=== PATIENT | female | born 1935 | race Caucasian/White ===

== ENCOUNTER 2019-06-20 09:56 | Outpatient (CLI) | payer OTHER, SELFPAY ==
--- NOTE | 2019-06-27 16:06 | WPDHOLTEREM ---
Holter/Event Monitor Holter/Event Monitor Date of procedure: 06/20/19 Procedure Type: 48 hour holter monitor Indications: Syncope Conclusion: 1. 48 hour holter monitor on 06/20/19. 2. Underlying rhythm is sinus rhythm. HR range 54-129 bpm; average HR 73 bpm. 3. No premature supraventricular complexes. No supraventricular tachycardia. 4. There are 9 premature ventricular complexes. No ventricular tachycardia. 5. No sinoatrial or atrioventricular blocks. No significant pauses greater than 2 seconds. 6. Patient reports symptoms of dizziness and eye pain which demonstrate sinus rhythm, HR range 64-90 bpm.
== END 2019-06-20 09:57 | disposition home or self-care (01) ==
LOC: ANHCARD 09:58
PROVIDERS: PCP Internal Medicine; Visit Provider Nurse Practitioner
DX: R55 Syncope and collapse (principal)
CPT/HCPCS: 93225; 93226

== ENCOUNTER 2019-07-04 08:44 | Outpatient (CLI) | payer OTHER, SELFPAY ==
--- NOTE | ~2019-07-04 | MM_ITS ---
EXAMINATION: MM screening chanda BI w paulino HISTORY: Screening mammogram TECHNIQUE: Craniocaudal and mediolateral oblique 3-D tomosynthesis images were obtained and synthetic 2-D images were generated. CAD analysis was submitted and interpreted. COMPARISON: 05/26/2018, 05/21/2017, 05/16/2016 bilateral digital screening mammogram examinations BREAST PARENCHYMAL COMPOSITION: There are scattered areas of fibroglandular density. FINDINGS: Scattered bilateral benign calcifications.. There is a biopsy marker on the left; history o f prior benign left breast biopsy. There is no evidence of suspicious mass, calcification, or archite ctural distortion to suggest malignancy in either breast. There has been no suspicious interval olsen e. IMPRESSION: 1. No mammographic evidence of malignancy. 2. Recommend routine screening mammography in one year. BI-RADS Category 2: Benign finding(s). Reviewed, dictated and finalized at location A. [employer]
== END 2019-07-04 08:45 | disposition home or self-care (01) ==
PROVIDERS: PCP Internal Medicine; Visit Provider Internal Medicine
DX: Z12.31 Encounter for screening mammogram for malignant neoplasm of breast (principal)
CPT/HCPCS: 77063; 77067

== ENCOUNTER 2020-09-18 09:35 | Outpatient (CLI) | payer OTHER, SELFPAY ==
--- NOTE | ~2020-09-18 | MM_ITS ---
EXAMINATION: MM screening chanda BI w paulino HISTORY: Screening mammogram TECHNIQUE: Craniocaudal and mediolateral oblique 3-D tomosynthesis images were obtained and synthetic 2-D images were generated. CAD analysis was submitted and interpreted. COMPARISON: 07/04/2019, 05/26/2018, 05/13/2017 bilateral digital screening mammogram examinations BREAST PARENCHYMAL COMPOSITION: There are scattered areas of fibroglandular density. FINDINGS: Biopsy marker on the left; history of prior benign left breast biopsy. Scattered bilateral benign calcifications. Stable circumscribed low-density approximately 2.8 x 6.8 mm opacity in the mid to lower outer left br east on MLO view (MLO Tomosynthesis image 21/71), not significantly changed since 05/26/2018. The mammo graphic features and the stability are consistent with benign process. There is no evidence of suspicious mass, calcification, or architectural distortion to suggest malign charlie in either breast. There has been no suspicious interval change. IMPRESSION: 1. No mammographic evidence of malignancy. 2. Recommend routine screening mammography in one year. BI-RADS Category 2: Benign finding(s). Reviewed, dictated and finalized at location A.
== END 2020-09-18 09:36 | disposition home or self-care (01) ==
LOC: ANHIMG 09:41
PROVIDERS: PCP Internal Medicine; Visit Provider Internal Medicine
DX: Z12.31 Encounter for screening mammogram for malignant neoplasm of breast (principal)
CPT/HCPCS: 77063; 77067

== ENCOUNTER → 2021-12-11 08:24 | Outpatient (CLI) | payer OTHER, SELFPAY ==
--- NOTE | ~2021-12-11 | US_ITS ---
EXAMINATION: US abdomen complete DATE: 12/11/2021 08:55 INDICATION: Abdominal pain and constipation. TECHNIQUE: Multiple grayscale and Doppler ultrasound images of the abdomen were obtained. COMPARISON: Abdomen 11/28/2005 FINDINGS: Visualized portions are normal. The liver is normal with normal echogenicity and echotextur e. No surface nodularity. Normal hepatopetal flow in the main portal vein. Multiple shadowing echogen ic foci obscured with the majority of the gallbladder lumen. The mildly dilated common bile duct prabha ures 10 mm. There was no sonographic Yap sign. The visualized portions of the aorta and inferior v aileen cava are normal. The right kidney measures 9.1 cm. The left kidney measures 8.9 cm. The kidneys demonstrate normal par enchymal echogenicity with mild cortical thinning. Echogenic right midpole pole focus. There is no hy dronephrosis. The spleen is normal in appearance and measures 7.9 cm. IMPRESSION: 1. Cholelithiasis. 2. Mild common bile duct dilation. 3. Nonobstructing right midpole echogenicity, likely calculus. Reviewed, dictated and finalized at location K.
== END ==
PROVIDERS: PCP Internal Medicine; Visit Provider Nurse Practitioner
DX: R19.5 Other fecal abnormalities (principal); K80.20 Calculus of gallbladder without cholecystitis without obstruction
CPT/HCPCS: 76700

== ENCOUNTER 2021-12-19 08:41 | Outpatient (CLI) | payer OTHER, SELFPAY ==
--- NOTE | ~2021-12-19 | DEXA_ITS ---
Bone Density Report Name: NEWTON ESTEVEZ Age: 86 Sex: Female Ethnicity: White Date of : 1935 Indication: osteopenia; hysterectomy; Referring Provider: LUCINDA MEADE Study: Bone densitometry was performed. Exam Date: December 19, 2021 Accession number: [id number] Bone Density: Region BMD T-score Z-score Classification AP Spine(L1-L4) 0.856 -1.7 1.1 Osteopenia Femoral Neck (Left) 0.549 -2.7 -0.2 Osteoporosis Total Hip (Left) 0.722 -1.8 0.5 Osteopenia Femoral Neck (Right) 0.547 -2.7 -0.2 Osteoporosis Total Hip (Right) 0.649 -2.4 -0.1 Osteopenia Total Hip Mean 0.686 -2.1 0.2 Osteopenia World Health Organization criteria for BMD impression classify patients as: Normal (T-score at or above -1.0), Osteopenia (T-score between -1.0 and -2.5), or Osteoporosis (T-score at or below -2.5). 10-year Fracture Risk: FRAX not reported because: Some T-score for Spine Total or Hip Total or Femoral Neck at or below -2.5 Previous Exams: Region Exam Age BMD T-score BMD Change BMD Change Date g/cm2 vs Baseline vs Previous AP Spine (L1-L4) 12/19/2021 86 0.856 -1.7 0.033 (4.0%)# -0.053 (-5.9%) 04/24/2015 79 0.910 -1.2 0.086 (10.5%)# 0.086 (10.5%)# 03/30/2012 76 0.824 -2.0 Total Hip(Left) 12/19/2021 86 0.722 -1.8 -0.050 (-6.5%) -0.074 (-9.3%) 04/24/2015 79 0.796 -1.2 0.024 (3.1%)# 0.024 (3.1%)# 03/30/2012 76 0.772 -1.4 Total Hip(Right) 12/19/2021 86 0.649 -2.4 -0.063 (-8.8%) -0.088 (-12.0% 04/24/2015 79 0.738 -1.7 0.026 (3.6%)# 0.026 (3.6%)# 03/30/2012 76 0.712 -1.9 *Denotes significance at 95% confidence level, LSC for AP Spine = 0.022 g/cm2, LSC for Total Hip = 0.027 g/cm2 # Denotes dissimilar scan types or analysis methods Clinical Information Provided by Patient: Has used the following medications: Vitamin D, Calcium Has the following medical conditions: Hysterectomy Patient maximum height was 62.5 Menopause Age: 49 No regular weight bearing exercise Onset of menses at age 13 Number of children 3 Impression: The patient has osteoporosis, based on the Left Femoral Neck T-score. The BMD for the AP Spine (L1-L4) decreased, changing by -5.9% since the last DXA exam. The BMD for the Total Hip(Left) decreased, changing by -9.3% since the last DXA exam. The BMD for the Total Hip(Right) decreased, changing by -12.0% since the last DXA exam. Discussion: INCREASED RISK OF FRACTURE. BONE DENSITY IS UNDESIRA
--- NOTE | ~2021-12-19 | MM_ITS ---
EXAMINATION: MM screening chanda BI w paulino HISTORY: Screening mammogram TECHNIQUE: Craniocaudal and mediolateral oblique 3-D tomosynthesis images were obtained and synthetic 2-D images were generated. CAD analysis was submitted and interpreted. COMPARISON: 09/18/2020, 07/04/2019, 05/26/2018 bilateral screening mammogram examinations BREAST PARENCHYMAL COMPOSITION: There are scattered areas of fibroglandular density. FINDINGS: Scattered bilateral benign calcifications There is no evidence of suspicious mass, calcific ation, or architectural distortion to suggest malignancy in either breast. There has been no suspicio us interval change. IMPRESSION: 1. No mammographic evidence of malignancy. 2. Recommend routine screening mammography in one year. BI-RADS Category 2: Benign finding(s). Reviewed, dictated and finalized at location A.
== END 2021-12-19 08:42 | disposition home or self-care (01) ==
LOC: ANHIMG 08:45
PROVIDERS: PCP Internal Medicine; Visit Provider Internal Medicine
DX: Z12.31 Encounter for screening mammogram for malignant neoplasm of breast (principal); Z78.0 Asymptomatic menopausal state; M85.88 Other specified disorders of bone density and structure, other site; M81.0 Age-related osteoporosis without current pathological fracture; M85.852 Other specified disorders of bone density and structure, left thigh; M85.851 Other specified disorders of bone density and structure, right thigh
CPT/HCPCS: 77063; 77067; 77080

== ENCOUNTER 2023-01-21 14:23 | Emergency (ER) | payer OTHER, SELFPAY ==
--- NOTE | 2023-01-21 14:35 | ED.FEMALEGU ---
HPI - Female Genitourinary General Chief complaint: Urogenital-Female Stated complaint: WEAKNESS/SHAKY/BURNING URINATION/LIGHT HEADED Time Seen by Provider: 01/21/23 14:35 Source: patient, family and RN notes reviewed History of Present Illness HPI Narrative: Patient is an 87-year-old female presents to urgent care with her 2 daughters with complaints of burning with urination, weakness, fatigue and hot flashes. Patient states it started last night after having a full day of yd work and housework. Patient does live alone and does not use any assistive devices. Patient denies any recent fever, nausea, vomiting. States that she does have some abdominal pressure. Patient did have COVID on January 08 and did well during that week of symptoms. Patient has not taken anything [id number]. States that when she stands up she feels very weak like she is ?going to pass out?. Patient did have a UTI approximately 2 months ago and was treated outpatient at another urgent care. Patient does take metformin and her blood sugar this morning at home was 126 however she has not eaten. No other acute complaints. No acute distress noted. Patient and family aware of the plan of care. Some parts of this dictation were generated by voice recognition software and may contain typographical and/or grammatical inaccuracies. Related Data Home Medications Medication Instructions Recorded Confirmed omega-3 fatty acids 1,000 mg 1,000 mg PO DAILY 06/24/19 01/21/23 capsule (Fish Oil Concentrate) cholecalciferol (vitamin D3) 50 50 mcg PO DAILY 12/06/20 01/21/23 mcg (2,000 unit) capsule melatonin 10 mg capsule 10 mg PO QHS 03/12/21 01/21/23 Allergies Allergy/AdvReac Type Severity Reaction Status Date / Time codeine Allergy Unknown Nausea and Verified 01/21/23 14:29 Vomiting Review of Systems Review of Systems: CONSTITUTIONAL: Reports of fatigue and sweats EYES: Denies visual changes, redness, or discharge. ENT: Denies rhinorrhea, congestion, sore throat, or otalgia. CARDIOVASCULAR: Denies chest pain, palpitations, or edema. RESPIRATORY: Denies cough or dyspnea. GASTROINTESTINAL: Reports abdominal pressure GENITOURINARY: Reports dysuria SKIN: Denies rash or itching. MUSCULOSKELETAL: Denies back pain, joint pain, or myalgia. NEUROLOGIC: reports of weakness All other systems reviewed are negative, except as documented in HPI. [facility] Past Medical History Medical History (Updated 01/21/23 @ 14:59 by JHONY Sanz) DDD (degenerative disc disease) Diabetes mellitus Diverticulosis Fibroids GERD (gastroesophageal reflux disease) Hemorrhoids Hiatal hernia HLD (hyperlipidemia) HTN (hypertension) Osteoporosis Peripheral neuropathy Rectal polyp Surgical History Surgical History H/O dilation and curettage H/O: hysterectomy Hx of tonsillectomy Status post eye surgery Family History Family History Mother Carcinoma of colon Family history of malignant neoplasm Patient's mother is Sibling Family history of Alzheimer's disease Family history of diabetes mellitus in first degree relative Patient's sister is Father Patient's father is Other Diabetes mellitus Social History Social History (Reviewed 09/11/22 @ 07:21 by Christine Heard [facility]) Smoking status: Never smoker Second hand tobacco smoke exposure: Yes Alcohol intake: never Substance use: never Substance use type: does not use Lack of Transportation: No Lack of Food: Never True Current Housing: I Have Housing Concerned About Future Housing: No Difficulty Paying Gas/Electric Bills: No Difficulty Paying for Meds: No Currently Unemployed: No Education: High School Diploma/GED Difficulty w/ Childcare or Family Care: No Comments At the time of my sig
[2023-01-21 14:36] VITALS: BP 138/81; PULSE 69; RESP 16; TEMP 36.6; O2SAT 100
[2023-01-21 14:48] LABS: Glucose Point of Care 136 mg/dl (65-105)
== END 2023-01-21 14:53 | disposition short-term general hospital (02) ==
PROVIDERS: Emergency Provider Nurse Practitioner Family; PCP Nurse Practitioner Family
DX: R41.0 Disorientation, unspecified (principal); R53.1 Weakness; R10.30 Lower abdominal pain, unspecified; Z86.16 Personal history of COVID-19; E11.42 Type 2 diabetes mellitus with diabetic polyneuropathy; K21.9 Gastro-esophageal reflux disease without esophagitis; E78.5 Hyperlipidemia, unspecified; I10 Essential (primary) hypertension; M81.0 Age-related osteoporosis without current pathological fracture; Z79.84 Long term (current) use of oral hypoglycemic drugs
CPT/HCPCS: 81003; 82948; 99212; 99213; G0463

== ENCOUNTER 2023-01-21 15:12 | Observation (INO) | payer OTHER, SELFPAY ==
--- NOTE | ~2023-01-21 | US_ITS ---
EXAMINATION: US carotid duplex BI DATE: 01/22/2023 19:06 INDICATION: Transient ischemic attack. Ataxia. TECHNIQUE: Grayscale, color Doppler, and pulsed Doppler images of the cervical carotid arteries were obtained. The degree of vessel stenosis is placed in one of the following categories: normal, <50%, 5 0-69%, >=70% but less than near-occlusion, near-occlusion, or total occlusion. Note that percent sten osis relative to normal distal artery lumen diameter is indirectly measured from velocity measurement s as described by Ez, et al. Radiology 2003; 229:340-346. COMPARISON: None. FINDINGS: RIGHT: The right common carotid artery (CCA) peak systolic velocity (PSV) is 98 cm/s. The right internal car otid artery (ICA) PSV is 85 cm/s. The right ICA end-diastolic velocity (EDV) is 25 cm/s. The right IC A/CCA PSV ratio is 0.9. Grayscale and color Doppler images yield an estimate of <50% diameter reducti on from plaque in the ICA. There is antegrade flow in the right vertebral artery. LEFT: The left CCA PSV is 112 cm/s. The left ICA PSV is 96 cm/s. The left ICA EDV is 31 cm/s. The left ICA/ CCA PSV ratio is 0.9. Grayscale and color Doppler images yield an estimate of <50% diameter reduction from plaque in the ICA. There is antegrade flow in the left vertebral artery. IMPRESSION: 1. <50% stenosis in the right internal carotid artery. 2. <50% stenosis in the left internal carotid artery. Reviewed, dictated and finalized at location E.
--- NOTE | ~2023-01-21 | MR_ITS ---
MRI of the brain Clinical History: Ataxia Technique: Axial and sagittal T1-weighted images were acquired. These were followed by axial T2-weigh jimmie, diffusion weighted, gradient, and FLAIR images. Following intravenous administration of 12 cc Mu ltiHance gadolinium, T1-weighted fat-sat imaging was performed in the axial and coronal planes. Findings: There is no acute infarct, intracranial hemorrhage, or mass lesion. There are extensive chr onic white matter changes throughout the periventricular white matter bilaterally. Ventricles and some arachnoid spaces are mildly dilated. Orbits are unremarkable. Paranasal sinuses a nd mastoid air cells are clear. Major intracranial flow voids are intact. Sagittal midline structures are intact. No abnormal postcontrast enhancement identified. IMPRESSION: Severe chronic microvascular ischemic changes and mild to moderate generalized atrophy. No acute infarct, intracranial hemorrhage, or mass lesion. Reviewed, dictated and finalized at [facility].
--- NOTE | ~2023-01-21 | XR_ITS ---
EXAMINATION: XR chest 2V Exam Date/Time: 01/21/2023 18:20 CDT HISTORY: dizziness, short of breath Comparison: 12/09/2005. RESULT: Lines, tubes, and devices: None. Lungs and pleura: Senescent change. Otherwise clear.. Cardiomediastinal silhouette: Stable. Other: No acute osseous or upper abdominal finding. IMPRESSION: No acute cardiopulmonary process. Reviewed, dictated and finalized at location K.
--- NOTE | ~2023-01-21 | CT_ITS ---
EXAMINATION: CT brain wo con DATE: 01/21/2023 18:20 INDICATION: dizziness, ataxia . TECHNIQUE: Computed tomography (CT) of the head was performed without intravenous contrast. The mA wa s adjusted according to patient size. Iterative reconstruction technique was employed. The dose-lengt h product was 605.33 mGy-cm. COMPARISON: 05/03/2019. FINDINGS: No acute intracranial hemorrhage or extra-axial fluid collection. No hydrocephalus, mass, or herniation. No acute ischemic infarct. Unremarkable dural venous sinus attenuation. No acute osseous abnormality. The aerated spaces are clear. Moderate atrophy and chronic white matter change. Atherosclerotic intracranial calcification. Surgica l fixation of the left orbital floor. IMPRESSION: No acute intracranial process. Reviewed, dictated and finalized at location K.
[2023-01-21 15:16] VITALS: BP 118/61; PULSE 69; RESP 16; TEMP 36.2; O2SAT 97
--- NOTE | 2023-01-21 16:04 | ECG_ITS ---
Measurements Intervals [place] Rate: 58 P: 64 VT: 216 QRS: 2 QRSD: 75 T: 92 QT: 379 QTc: 373 Interpretive Statements SINUS BRADYCARDIA WITH FIRST DEGREE AV BLOCK NONSPECIFIC ST & T-WAVE ABNORMALITY ABNORMAL ECG COMPARED TO ECG 05/03/2019 15:18:17 SINUS BRADYCARDIA NOW PRESENT FIRST DEGREE AV BLOCK NOW PRESENT T-WAVE ABNORMALITY NOW PRESENT Electronically Signed On 01-22-2023 9:43:34 CDT by Cody Hernandez M.D.
[2023-01-21 16:26] LABS: Basophils Absolute Auto 0.1 K/mm3 (0.0-0.1); Basophils Percent Auto 0.7 % (0.2-1.2); Eosinophils Absolute Auto 0.2 K/mm3 (0-0.3); Eosinophils Percent Auto 1.6 % (0-4.4); Hematocrit 44.8 % (37.0-47.0); Hemoglobin 14.9 g/dL (12.0-15.0); Immature Granulocyte Absolute 0.02 K/mm3 (0.00-0.031); Immature Granulocyte Percent A 0.2 % (0-0.5); Lymphocytes Absolute Auto 3.97 K/mm3 (0.9-3.2); Lymphocytes Percent Auto 40.3 % (18.3-44.2); Mean Corpuscular HGB Conc 33.3 g/dl (32-36); Mean Corpuscular Hemoglobin 28.5 pg (26-34); Mean Corpuscular Volume 85.8 fl (80-100); Mean Platelet Volume 10.7 fl (7.4-10.4); Monocytes Absolute Auto 0.7 K/mm3 (0.1-0.6); Monocytes Percent Auto 6.7 % (2.6-8.5); Neutrophils Percent Auto 50.5 % (45.5-73.1); Platelet Count Result 339 k/mm3 (150-375); Red Blood Count 5.22 M/mm3 (4.2-5.4); Red Cell Distribution Width 12.9 % (11.5-14.5); White Blood Count 9.9 K/mm3 (4.5-10.0)
[2023-01-21 16:30] VITALS: BP 176/78; PULSE 57; RESP 18; O2SAT 94
[2023-01-21 16:37] LABS: Alanine Aminotransferase 29 U/L (6-35); Albumin Level 4.2 g/dL (3.5-5.1); Alkaline Phosphatase 71 U/L (38-126); Anion Gap 16 mmol/L (8-16); Aspartate Amino Transferase 38 U/L (14-36); Bilirubin,Total 0.8 mg/dL (0.2-1.3); Blood Urea Nitrogen 14 mg/dL (7-17); Calcium 9.8 mg/dL (8.4-10.2); Carbon Dioxide 19 mmol/L (22-30); Chloride 105 mmol/L (98-107); Estimated CRCL calculation 34 ml/min; Estimated Glomerular Filt Rate > 60; Glucose 131 mg/dL (65-110); Potassium 3.6 mmol/L (3.4-5.0); Sodium 140 mmol/L (137-145)
[2023-01-21] MEDS: SODIUM CHLORIDE 0.9% IV 1,000 ML 999 ML IV CONT (16:43)
[2023-01-21 17:30] VITALS: BP 149/72; PULSE 63; RESP 16; O2SAT 98
--- NOTE | 2023-01-21 17:57 | ED.WEAKNESS ---
HPI - Weakness General Chief complaint: Weakness Stated complaint: dizzy, tremors, fatigue Time Seen by Provider: 01/21/23 15:44 History of Present Illness HPI Narrative: Patient is an 87-year-old female who presents ER with weakness/dizziness. Ongoing since being diagnosed with COVID-19 on 01/08/2023. She is not currently having any fevers or chills or sweats. Has had poor appetite. Over the last couple of days she has become so weak and fatigued that she is unable to ambulate independently and she has been using a wheelchair at home. No falls or injury. She had mild headache yesterday but no headache today. No focal lateralizing weakness or numbness. No slurred speech. Patient reports with any sort of standing or sitting up she becomes incredibly dizzy/weak and feels as if she will fall. Is not improved until she lays down flat. No sinus congestion or sore throat or productive cough. No ear pressure or tinnitus. Related Data Home Medications Medication Instructions Recorded Confirmed omega-3 fatty acids 1,000 mg 1,000 mg PO DAILY 06/24/19 01/21/23 capsule (Fish Oil Concentrate) cholecalciferol (vitamin D3) 50 50 mcg PO DAILY 12/06/20 01/21/23 mcg (2,000 unit) capsule melatonin 10 mg capsule 10 mg PO QHS 03/12/21 01/21/23 Allergies Allergy/AdvReac Type Severity Reaction Status Date / Time codeine Allergy Unknown Nausea and Verified 01/21/23 14:29 Vomiting Review of Systems Review of Systems: All systems reviewed & are unremarkable except as noted in HPI and below Constitutional: Constitutional: Denies chills, Reports fatigue, Denies fever(s) and Reports weakness ENT: Denies nasal congestion and Denies sore throat Cardiovascular: Cardiovascular: Denies chest pain and Denies rapid heart rate Respiratory: Respiratory: Denies cough, Denies dyspnea and Denies wheezing Gastrointestinal: Gastrointestinal: Denies abdominal pain, Denies nausea and Denies vomiting Genitourinary: Genitourinary: Denies nocturia, Denies dysuria and Denies flank pain Neurologic: Reports dizziness, Denies syncope, Denies headache(s), Denies focal weakness, Denies numbness and Reports weakness Psychiatric: Psychiatric: Reports anxiety [facility] Past Medical History Medical History (Updated 01/21/23 @ 19:14 by Deniz Merida MD) DDD (degenerative disc disease) Diabetes mellitus Diverticulosis Fibroids GERD (gastroesophageal reflux disease) Hemorrhoids Hiatal hernia HLD (hyperlipidemia) HTN (hypertension) Osteoporosis Peripheral neuropathy Rectal polyp Surgical History Surgical History H/O dilation and curettage H/O: hysterectomy Hx of tonsillectomy Status post eye surgery Family History Family History Mother Carcinoma of colon Family history of malignant neoplasm Patient's mother is Sibling Family history of Alzheimer's disease Family history of diabetes mellitus in first degree relative Patient's sister is Father Patient's father is Other Diabetes mellitus Social History Social History Smoking status: Never smoker Second hand tobacco smoke exposure: Yes Alcohol intake: never Substance use: never Substance use type: does not use Lack of Transportation: No Lack of Food: Never True Current Housing: I Have Housing Concerned About Future Housing: No Difficulty Paying Gas/Electric Bills: No Difficulty Paying for Meds: No Currently Unemployed: No Education: High School Diploma/GED Difficulty w/ Childcare or Family Care: No Exam Narrative: GENERAL: Fatigued-appearing, well-nourished, and in no acute distress. HEAD: Normocephalic, atraumatic. EYES: PERRLA and EOMI. ENT: Mucous membranes moist. NECK: Supple. CHEST: Clear to auscultation.
[2023-01-21 18:00] VITALS: BP 159/89; PULSE 60; RESP 18; O2SAT 100
[2023-01-21 18:53] LABS: Appearance Urine Clear (Clear); Bilirubin Urine Negative (Negative); Blood Urine Negative (Negative); Color Urine Yellow (Yellow); Glucose Urine UA Negative (Negative); Ketones Urine Negative (Negative); Leukocyte Esterase Ur Negative LEU/UL (Negative); Nitrate Urine Negative (Negative); Protein Urine Negative (Negative); Specific Grav Ur 1.007 (1.001-1.035); Urobilinogen Urine 0.2 mg/dL (<2.0); pH Urine 8.5 (5.0-9.0)
[2023-01-21 18:55] LABS: Add Urine Microscopic? NO
--- NOTE | 2023-01-21 19:16 | PC.NURSE ---
Patient's family came out of room and states that patient began acting confused . This RN went to assess patient and she was unable to answer basic orientation questions. Provider made aware to assess patient. Order placed for ativan
[2023-01-21 19:29] LABS: Carboxyhemoglobin 0.3 % THb (0-2.0); Fractional Inspired Oxygen 21 %; HCO3 ABG 17.7 mEq/l (22.0-26.0); Methemoglobin ABG 0.2 %THb (0-1.5); Oxygen Content ABG 20.2 %vol (16.0-22.0); Oxygen Saturation ABG 98.8 % (95.0-100.0); Oxyhemoglobin 97.5 % THb (90.0-100.0); PO2 ABG 98.7 mmHg (80.0-100.0); Total Hemoglobin 14.7 g/dL (12.0-18.0)
[2023-01-21 19:32] LABS: PCO2 ABG 13.4 mmHg (35.0-45.0); pH ABG 7.738 (7.350-7.450)
[2023-01-21 19:33] LABS: Device ROOM AIR; Modified Allen's Test Pass; Site Drawn RIGHT RADIAL
--- NOTE | 2023-01-21 19:53 | PC.NURSE ---
Hospitalist called about patient's confusion. Dr Hinds at bedside.
[2023-01-21] MEDS: LORazepam INJ (*CRX) 2 MG/ML VIAL 0.5 MG IV PUSH (20:05)
[2023-01-21 20:07] VITALS: BP 140/82; PULSE 61; RESP 23; O2SAT 100
--- NOTE | 2023-01-21 21:56 | ADMGEN ---
This patient, Noemi Peter, was admitted to 3 Med Surg Room 321-02 at 2150. Patient/family oriented to hospital policies and general routines including ID bracelet, bed and alarms, visiting hours, pain management, procedures, bathroom and other care routines, personal items, smoking policy, room service/diet, and visiting hours. Information on how to activate the Rapid Response Team has been discussed. Patient/Family are encouraged to report perceived risks to care and to ask questions if they do not understand what they are told or what they should do.
[2023-01-21 22:00] VITALS: BP 157/64; PULSE 63; RESP 14; TEMP 35.8; O2SAT 98
--- NOTE | 2023-01-21 22:17 | PM.IMHP ---
H&P: HPI History of Present Illness Date/Time: 01/21/23 22:17 Chief Complaint: Weakness Narrative: Patient is a 87-year-old female with past medical history GERD, type 2 diabetes with peripheral neuropathy, hyperlipidemia who presents with weakness. Patient has completed by 2 daughters. Power dental equipment installer and servicer is patient's son. Patient lives alone and has close family. She was diagnosed with COVID-19 on 01/08/2023. Disease was pretty mild and of note she has been vaccinated x5. She has not had any issues and yesterday even went to a [employer] function. Going home she felt some weakness and tremors was able to get home. This morning patient had worsening weakness that family was concerned that she was unable to ambulate to the bathroom alone. At baseline patient is very functional even drives and takes care of herself. Patient is full code. In the ED: Workup in the ED was negative with negative head CT, labs within normal limits. While in the ED she has increased confusion and some word salad issues. Her confusion appeared to be intermittent at times speaking coherently. 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 Will see in the a.m. about MRI. With patient's acute encephalopathy and weakness we will admit for observation. Review of Systems Review of Systems: Constitutional: No Fever, No Chills, No Night Sweats, endorses fatigue and weakness ENT/Mouth: No Hearing Changes, No Ear Pain, No Nasal Congestion, No Sinus Pain, No Hoarseness, No sore throat, No Rhinorrhea, No Swallowing Difficulty Eyes: No Eye Pain, No Redness, No Vision Changes Cardiovascular: No Chest Pain, No Palpitations, No Dyspnea on Exertion, No Orthopnea, No Claudication, No Edema Respiratory: No Cough, No Sputum, No Wheezing, No Shortness of Breath Gastrointestinal: No Nausea, No Vomiting, No Diarrhea, No Constipation, No Abdominal Pain, No Heartburn, No Hematochezia, No Melena Genitourinary: No Dysuria, No Urinary Frequency, No Hematuria, No Urinary Incontinence, No Urgency Musculoskeletal: No Arthralgias, No Myalgias, No Joint Swelling, No Joint Stiffness, No Back Pain Skin: No Skin Lesions, No Pruritis, No Hair Changes Neuro: No Weakness, No Numbness, No Paresthesias, No Loss of Consciousness, No Syncope, No Dizziness, No Headache. Endorses new tremors Psych: No Anxiety/Panic, No Depression, No Insomnia Heme: No Bruising, No Bleeding Lymph: No Adenopathy Endocrine: No Polyuria, No Polydipsia, No Temperature Intolerance PMF Past Medical History Medical History DDD (degenerative disc disease) Diabetes mellitus Diverticulosis Fibroids GERD (gastroesophageal reflux disease) Hemorrhoids Hiatal hernia HLD (hyperlipidemia) HTN (hypertension) Osteoporosis Peripheral neuropathy Rectal polyp Surgical History Surgical History H/O dilation and curettage H/O: hysterectomy Hx of tonsillectomy Status post eye surgery Family History Family History Mother Carcinoma of colon Family history of malignant neoplasm Patient's mother is Sibling Family history of Alzheimer's disease Family history of diabetes mellitus in first degree relative Patient's sister is Father Patient's father is Other Diabetes mellitus Social History Social History Smoking status: Never smoker Second hand tobacco smoke exposure: Yes Alcohol intake: never Substance use: never Substance use type: does not use Lack of Transportation: No Lack of Food: Never True Current Housing: I Have Housing Concerned About Future Housing: No Difficulty Paying Gas/Electric Bills: No Difficulty Paying for Meds: No Curre
--- NOTE | 2023-01-21 22:25 | PC.NURSE ---
med list in progress. patient able to state medications but not doses. will call daughter Pat to confirm doses
[2023-01-21 22:31] VITALS: BMI 25.2
[2023-01-21 22:33] LABS: Glucose Point of Care 110 mg/dl (65-105)
[2023-01-21 23:13] LABS: Base Excess ABG 0.4 mEq/l (+/-2.0); Fractional Inspired Oxygen 21 %; HCO3 ABG 20.7 mEq/l (22.0-26.0); Oxygen Content ABG 19.2 %vol (16.0-22.0); Oxygen Saturation ABG 97.2 % (95.0-100.0); Oxyhemoglobin 95.1 % THb (90.0-100.0); PO2 ABG 79.4 mmHg (80.0-100.0); PO2 FiO2 Ratio Arterial Blood 3.78 %; Total Hemoglobin 14.3 g/dL (12.0-18.0)
[2023-01-21 23:20] LABS: Modified Allen's Test Pass; PCO2 ABG 23.7 mmHg (35.0-45.0); Site Drawn RIGHT BRACHIAL
[2023-01-21 23:21] LABS: Device ROOM AIR
--- NOTE | 2023-01-21 23:56 | PC.NURSE ---
med list completed after speaking to patient, daughter, and pharmacy. Medication list scanned and placed in chart. Patient states she had a blood pressure issue and passed out while taking Atorvastatin so she no longer is taking it
[2023-01-22] VITALS (9 sets, daily range): BP systolic 96–118; BP diastolic 53–63; PULSE 66–78; RESP 12–18; TEMP 36.3–36.9; O2SAT 94–95
[2023-01-22 03:36] LABS: Glucose Point of Care 125 mg/dl (65-105)
[2023-01-22 06:41] LABS: Basophils Absolute Auto 0.1 K/mm3 (0.0-0.1); Basophils Percent Auto 0.6 % (0.2-1.2); Eosinophils Absolute Auto 0.1 K/mm3 (0-0.3); Eosinophils Percent Auto 1.2 % (0-4.4); Hematocrit 38.5 % (37.0-47.0); Hemoglobin 12.7 g/dL (12.0-15.0); Immature Granulocyte Absolute 0.03 K/mm3 (0.00-0.031); Immature Granulocyte Percent A 0.3 % (0-0.5); Lymphocytes Absolute Auto 3.69 K/mm3 (0.9-3.2); Mean Corpuscular Hemoglobin 28.8 pg (26-34); Mean Corpuscular Volume 87.3 fl (80-100); Mean Platelet Volume 10.4 fl (7.4-10.4); Monocytes Absolute Auto 0.8 K/mm3 (0.1-0.6); Monocytes Percent Auto 6.9 % (2.6-8.5); Neutrophils Absolute Auto 6.2 K/mm3 (1.3-6.7); Platelet Count Result 287 k/mm3 (150-375); Red Blood Count 4.41 M/mm3 (4.2-5.4); Red Cell Distribution Width 12.7 % (11.5-14.5); White Blood Count 10.9 K/mm3 (4.5-10.0)
[2023-01-22 06:50] LABS: Alanine Aminotransferase 24 U/L (6-35); Albumin Level 3.6 g/dL (3.5-5.1); Alkaline Phosphatase 61 U/L (38-126); Anion Gap 5 mmol/L (8-16); Aspartate Amino Transferase 31 U/L (14-36); Blood Urea Nitrogen 14 mg/dL (7-17); Calcium 8.6 mg/dL (8.4-10.2); Carbon Dioxide 26 mmol/L (22-30); Chloride 106 mmol/L (98-107); Cholesterol 115 mg/dL (0-200); Estimated CRCL calculation 31 ml/min; Estimated Glomerular Filt Rate 59; Glucose 106 mg/dL (65-110); HDL Direct 31 mg/dL; Magnesium 1.1 mg/dL (1.6-2.3); Potassium 3.6 mmol/L (3.4-5.0); Sodium 137 mmol/L (137-145); Triglycerides 148 mg/dL (<150)
[2023-01-22 07:13] LABS: LDL Cholesterol Direct 62 mg/dL
[2023-01-22 08:07] LABS: Glucose Point of Care 110 mg/dl (65-105)
[2023-01-22 08:17] LABS: Hemoglobin A1C 7.3 % (<5.7)
[2023-01-22 08:26] LABS: Salicylate < 1.0 mg/dL (2-20)
[2023-01-22] MEDS: metFORMIN HCL 500 MG TABLET 1000 MG PO ×2 (09:08→18:50)
[2023-01-22] MEDS: MAGNESIUM SULFATE 3GM/D5W100ML 3 GM/100 ML BAG IVPB (09:08)
[2023-01-22] MEDS: CHOLECALCIFEROL 1,000 UNITS TABLET 2000 UNITS PO (09:08)
[2023-01-22] MEDS: OMEGA 3 POLYUNSAT FATTY ACIDS 1 GM CAP PO (09:08)
[2023-01-22] MEDS: CITALOPRAM HYDROBROMIDE 20 MG TABLET PO (09:08)
[2023-01-22] MEDS: ENOXAPARIN 30 MG/0.3 ML SYRINGE SUB-Q (09:09)
--- NOTE | 2023-01-22 09:40 | PC.NURSE ---
faxed MRI screening form to radiology with details provided by pt's son for titanium plate and screws in cheek
--- NOTE | 2023-01-22 10:53 | PC.NURSE ---
pt to MRI via wheelchair
[2023-01-22 11:47] LABS: Glucose Point of Care 85 mg/dl (65-105)
--- NOTE | 2023-01-22 11:58 | WPDNEURCNPN ---
Assessment and Plan Assessment and plan (1) Aphasia: Code(s): R47.01 - Aphasia Status: Acute (2) Dizziness: Code(s): R42 - Dizziness and giddiness Status: Acute (3) Weakness: Code(s): R53.1 - Weakness Status: Inactive Plan Noemi Peter is a 87 year old female with a history of degenerative disc disease, diabetes mellitus, diabetic neuropathy, hyperlipidemia, hypertension presenting due to generalized weakness/dizziness and word finding difficulty. Unclear etiology of symptoms. MRI brain is negative for acute stroke. Could have been TIA. - Continue Aspirin - LDL is at goal - Surface echocardiogram with bubble study -- pending Consult date: 01/23/23 Reason for consult: Encephalopathy, aphasia HPI: Noemi Peter is a 87 year old female with a history of degenerative disc disease, diabetes mellitus, diabetic neuropathy, hyperlipidemia, hypertension presenting due to generalized weakness/dizziness and word finding difficulty. Patient was diagnosed with COVID infection on 01/08. Symptoms were mild at the time and she did not have any issues until the day of presentation when she started to have generalized weakness. She had gotten to the point that she couldn't walk to the bathroom alone. At baseline she is fully independent of all her ADLs. Patient also reported dizziness with standing and sitting upright. Due to her symptoms, she was taken to [facility] ED. In the ED her CT head was negative for acute process. Lab work was unrevealing for etiology of her symptoms. There was report that patient appeared to be confused and was having some word finding difficulty wile in the ER. Patient is now back to her baseline. MRI brain was negative for acute stroke. Carotid doppler study showed <50% stenosis bilaterally. LDL level is 63. Her A1c is 7.3. Surface echocardiogram has been done but report is pending. Review of Systems Constitutional: Constitutional: Denies chills, Denies fever(s) and Denies weight loss Eyes: Eyes: Denies diplopia and Denies loss of vision ENT: Denies dizziness, Denies hearing loss and Denies tinnitus Cardiovascular: Cardiovascular: Denies chest pain, Denies syncope and Denies dyspnea Respiratory: Respiratory: Denies cough, Denies dyspnea and Denies wheezing Gastrointestinal: Gastrointestinal: Denies abdominal pain, Denies change in bowel habits and Denies vomiting Genitourinary: Genitourinary: Denies urinary incontinence Musculoskeletal: Musculoskeletal: Reports arthralgias and Reports joint swelling Integumentary/Breasts: Skin/Breast: Denies new lesions and Denies rash Neurologic: Reports as per HPI, Denies dizziness, Denies syncope and Denies loss of vision Psychiatric: Psychiatric: Denies anxiety and Denies depression Endocrine: Endocrine: Denies cold intolerance and Denies heat intolerance Hematologic/Lymphatic: Hematologic/Lymphatic: Denies easy bleeding and Denies easy bruising Allergic/Immunologic: Allergic/Immunologic: Denies no additional allergic/immunologic complaints and Denies wheezing PMFSH Past Medical History Medical History DDD (degenerative disc disease) Diabetes mellitus Diverticulosis Fibroids GERD (gastroesophageal reflux disease) Hemorrhoids Hiatal hernia HLD (hyperlipidemia) HTN (hypertension) Osteoporosis Peripheral neuropathy Rectal polyp Surgical History Surgical History H/O dilation and curettage H/O: hysterectomy Hx of tonsillectomy Status post eye surgery Family History Family History Mother Carcinoma of colon Family history of malignant neoplasm Patient's mother is Sibling Family history of Alzheimer's disease Family history of diabetes mellitus in first degree relative Patient's sister is Father Patient's
--- NOTE | 2023-01-22 15:30 | PM.IMPN ---
Progress Note: A&P Assessment and Plan (1) Confusion: Code(s): R41.0 - Disorientation, unspecified Status: Inactive Assessment and Plan: Patient presents to the ED for weakness. While being evaluated, she developed confusion with word salad. CT brain showing no acute findings. CXR clear. UA negative. ABG showing 7.738/13/98 on room air. Labs normal except for serum bicarb 19 that is probably compensatory. [place] she may be hyperventilating and did receive Ativan x 1 in ED with improvement in her ABG. Able to get MRI brain showing severe chronic microvascular ischemic changes and mild-mod atrophy. No acute findings. Confusion resolved in ED. No recurrence. Salicylate level negative. Not hypoxic or tachycardic to suggest PE. Consider TIA or related to hyperventilation. Neuro consulted Check Carotid US. CrCl 31 so will hold off on CTA head/neck. Check Echo Add ASA. 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 CXR was clear. Concern for post-COVID condition. Follow (3) Anxiety: Code(s): F41.9 - Anxiety disorder, unspecified Status: Acute Assessment and Plan: Patient with known anxiety disorder. She is on citalopram and this has been resumed. Mood stable. Will follow (4) Hypomagnesemia: Code(s): E83.42 - Hypomagnesemia Status: Acute Assessment and Plan: Mag level low at 1.1 and this was replaced. Repeat labs in the morning. Replace as needed (5) Respiratory alkalosis: Code(s): E87.3 - Alkalosis Status: Acute Assessment and Plan: Patient with significant respiratory alkalosis. Salicylate level negative. Related to anxiety/panic attack? Brain MRI showing no acute findings. Symptoms improved with Ativan. Follow (6) Type 2 diabetes mellitus with diabetic polyneuropathy: Code(s): E11.42 - Type 2 diabetes mellitus with diabetic polyneuropathy Status: Acute Assessment and Plan: The patient's blood glucose was reviewed on 01/22 Glucose remains well controlled. Continue AccuCheks covering with sliding scale. Hypoglycemia protocol available as needed. Continue current medications. Plan Diet: Heart healthy DVT prophylaxis: Lovenox Code status: Full code (son is Phil) Disposition: PT/OT to eval/treat. Home if able; o/w SNF Subjective Date/time seen: 01/22/23 15:30 Interval history: 87yo female with DM, HLD and GERD here for weakness and developed confusion and word salad in the ED. Symptoms lasted about 1 hour per family. She feels better. Slept all night. She was having dizziness described as lightheadedness with standing and would skae 'on the inside and outside'. She lives alone. No CP, SOB or palpitations. No alcohol, drug use or prescription narcotic/benzo use. Had a syncopal event in 2019 with negative workup. Exam Narrative: AF 98.4 104/56 66 16 95% ra Gen - NARD lying semi-recumbent in bed asleep Chest - CTA bilaterally, nml RR CV - RRR S1/S2. Tele showing no significant dysrhythmias Abd - Soft, NT/ND, Positive BS Ext - No pedal edema Neuro - Alert and oriented x4. Nonfocal exam. Psych - Nml mood and affect Skin - Warm and dry Objective Data Vital Signs Vital Signs: Vital Signs - 24 hr 01/21/23 16:30 01/21/23 17:30 01/21/23 18:00 Temperature Pulse Rate 57 L 63 60 Respiratory Rate 18 16 18 Blood Pressure 176/78 H 149/72 H 159/89 H Pulse Oximetry 94 98 100 Oxygen Delivery 01/21/23 20:07 01/21/23 22:00 01/22/23 01:04 Temperature 96.5 F L Pulse Rate 61 63 69 Respiratory Rate 23 H 14 Blood Pressure 140/82 157/64 H Pulse Oximetry 100 98 Oxygen Delivery 01/21/23 22:00 01/22/23 06:00 01/22/23 04:00 Temperature 97.3 F L Pulse Rate 68 71 Respiratory Rate 12 Blood Pressure 96/53 L Pulse Oximetry 94
[2023-01-22 17:17] LABS: Glucose Point of Care 112 mg/dl (65-105)
[2023-01-22] MEDS: ASPIRIN 81 MG CHEWABLE TABLET PO (18:49)
[2023-01-22 21:09] LABS: Glucose Point of Care 99 mg/dl (65-105)
[2023-01-23] VITALS (7 sets, daily range): BP systolic 121–132; BP diastolic 60–66; PULSE 62–74; RESP 16; TEMP 35.8–36.7; O2SAT 94–96
--- NOTE | 2023-01-23 | ECHO_ITS ---
Patient Info Name: Noemi Peter Age: 87 years : 1935 Gender: Female Ht: 62 in Wt: 137 lbs BSA: 1.66 m2 HR: 70 bpm BP: 132 / 60 mmHg Heart Rhythm: Sinus Rhythm Technical Quality: Fair Exam Date: 01/23/2023 10:19 AM Exam Location: [facility] Pulmonary Exam Room: 321 Patient Status: Inpatient Admit Date: 01/21/2023 Staff Ordering Physician: Corwin Sibley MD Slicer Machine Operator: Laura Quarles RDCS Attending Provider: Lorene Hinds DO Exam Type: CA echo doppler color flow Study Info Indications - TIA Complete two-dimensional, color flow and Doppler transthoracic echocardiogram is performed. Summary 1. Complete two-dimensional, color flow and Doppler transthoracic echocardiogram is performed. 2. Left ventricular chamber dimension is normal. 3. Left ventricular systolic function is normal, estimated at 60-65%. 4. The left ventricular diastolic function is grade I diastolic dysfunction. 5. E/e' 12 is mildly elevated. 6. There is mild aortic valve sclerosis. 7. There is trace mitral valve regurgitation. 8. There is mild tricuspid valve regurgitation. 9. No pulmonary hypertension, estimated pulmonary arterial systolic pressure is 21 mmHg. 10. There is trace pulmonic regurgitation. Left Ventricle E/e' 12 is mildly elevated. Left ventricular chamber dimension is normal. Left ventricular systolic function is normal, estimated at 60-65%. The left ventricular diastolic function is grade I diastolic dysfunction. Right Ventricle Right ventricular chamber dimension is normal. Right ventricular systolic function is normal. Left Atria Left atrial chamber dimension is normal. Right Atria Right atrial chamber dimension is normal. Aortic Valve The aortic valve is trileaflet. There is mild aortic valve sclerosis. There is no aortic valve stenosis. There is no aortic valve regurgitation. Pulmonic Valve There is trace pulmonic regurgitation. Mitral Valve There is no mitral valve stenosis. There is trace mitral valve regurgitation. Tricuspid Valve There is mild tricuspid valve regurgitation. No pulmonary hypertension, estimated pulmonary arterial systolic pressure is 21 mmHg. Pericardium/Pleural There is no pericardial effusion. Inferior Vena Cava Normal inferior vena cava with >50% collapse upon inspiration consistent with normal right atrial pressure, 5 mmHg. Aorta The aortic root size at the sinus of Valsalva is normal. Left Ventricular Outflow Tract Name Value Normal LVOT 2D LVOT Diameter 2.0 cm LVOT Doppler LVOT Peak Gradient 4 mmHg LVOT Mean Gradient 3 mmHg LVOT VTI 22 cm LVOT VTI/AV VTI Ratio 0.9 LVOT Stroke Volume 68 ml LVOT CO 14.9 l/min LVOT CI 9.0 l/min/m2 Pulmonic Valve Name Value Normal RVOT Doppler
[2023-01-23 06:34] LABS: Basophils Absolute Auto 0.1 K/mm3 (0.0-0.1); Basophils Percent Auto 0.9 % (0.2-1.2); Eosinophils Absolute Auto 0.3 K/mm3 (0-0.3); Hematocrit 39.9 % (37.0-47.0); Hemoglobin 12.9 g/dL (12.0-15.0); Immature Granulocyte Absolute 0.02 K/mm3 (0.00-0.031); Immature Granulocyte Percent A 0.2 % (0-0.5); Lymphocytes Absolute Auto 3.98 K/mm3 (0.9-3.2); Lymphocytes Percent Auto 43.7 % (18.3-44.2); Mean Corpuscular HGB Conc 32.3 g/dl (32-36); Mean Corpuscular Hemoglobin 28.6 pg (26-34); Mean Corpuscular Volume 88.5 fl (80-100); Mean Platelet Volume 10.5 fl (7.4-10.4); Monocytes Absolute Auto 0.6 K/mm3 (0.1-0.6); Monocytes Percent Auto 6.7 % (2.6-8.5); Neutrophils Absolute Auto 4.1 K/mm3 (1.3-6.7); Neutrophils Percent Auto 45.5 % (45.5-73.1); Platelet Count Result 275 k/mm3 (150-375); Red Blood Count 4.51 M/mm3 (4.2-5.4); White Blood Count 9.1 K/mm3 (4.5-10.0)
[2023-01-23 06:49] LABS: Albumin Level 3.4 g/dL (3.5-5.1); Anion Gap 5 mmol/L (8-16); Blood Urea Nitrogen 16 mg/dL (7-17); Calcium 8.6 mg/dL (8.4-10.2); Carbon Dioxide 26 mmol/L (22-30); Chloride 107 mmol/L (98-107); Estimated CRCL calculation 31 ml/min; Estimated Glomerular Filt Rate 59; Glucose 82 mg/dL (65-110); Magnesium 1.6 mg/dL (1.6-2.3); Phosphorus 3.6 mg/dL (2.5-4.5); Sodium 138 mmol/L (137-145)
[2023-01-23 08:05] LABS: Glucose Point of Care 102 mg/dl (65-105)
[2023-01-23] MEDS: OMEGA 3 POLYUNSAT FATTY ACIDS 1 GM CAP PO (08:31)
[2023-01-23] MEDS: ENOXAPARIN 30 MG/0.3 ML SYRINGE SUB-Q (08:31)
[2023-01-23] MEDS: CHOLECALCIFEROL 1,000 UNITS TABLET 2000 UNITS PO (08:31)
[2023-01-23] MEDS: metFORMIN HCL 500 MG TABLET 1000 MG PO (08:31)
[2023-01-23] MEDS: CITALOPRAM HYDROBROMIDE 20 MG TABLET PO (08:31)
[2023-01-23] MEDS: ASPIRIN 81 MG CHEWABLE TABLET PO (08:31)
[2023-01-23 12:02] LABS: Glucose Point of Care 82 mg/dl (65-105)
--- NOTE | 2023-01-23 14:52 | PM.DS ---
DS: Admitting Diagnosis Discharge Date 01/23/23 Admitting Diagnosis Weakness and confusion DS: Discharge Diagnosis Discharge Diagnosis (1) Confusion: Code(s): R41.0 - Disorientation, unspecified Status: Inactive (2) [id number] condition: Code(s): U09.9 - Post COVID-19 condition, unspecified Status: Acute (3) Anxiety: Code(s): F41.9 - Anxiety disorder, unspecified Status: Acute (4) Hypomagnesemia: Code(s): E83.42 - Hypomagnesemia Status: Acute (5) Respiratory alkalosis: Code(s): E87.3 - Alkalosis Status: Acute (6) Type 2 diabetes mellitus with diabetic polyneuropathy: Code(s): E11.42 - Type 2 diabetes mellitus with diabetic polyneuropathy Status: Acute DS: Summary Hospital Course Reason for hospitalization: 87yo female with DM, HLD and GERD here for weakness and developed confusion and word salad in the ED. Symptoms lasted about 1 hour per family. Please see H&P for details. Hospital Course: Patient presented to the ED for weakness. While being evaluated, she developed confusion with word salad. CT brain showing no acute findings. CXR clear. UA negative. ABG showing 7.74/13/98 on room air. Labs normal except for serum bicarb 19 that is probably compensatory. [place] she may be hyperventilating and did receive Ativan x 1 in ED with improvement in her ABG. MRI brain showing severe chronic microvascular ischemic changes and mild-mod atrophy. No acute findings. Confusion resolved in ED. No recurrence. She was not hypoxic or tachycardic to suggest PE. Consider TIA or related to severe respiratory alkalosis/hyperventilation. Neurology consulted. Carotid US showing <50% stenosis bilaterally. ASA added. Echo showing EF 60-65% and Grade I diastolic dysfunction. EKG showing sinus bradycardia rate 58, nonspecific ST-T wave changes and first degree AV block. PT/OT ordered and they felt patient did well with therapy but recommended home health but patietn refused. Patient overall did well and was able to be discharged home on 01/23/2023. Status at Discharge Cognitive/behavioral status at discharge: Stable Time Spent with Patient Time attestation: Total time spent providing and/or coordinating discharge services: 35 minutes Time spent: Greater than 30 minutes Exam Narrative: AF 98.0 121/66 67 16 94% ra Gen - NARD Chest - CTA bilaterally, nml RR CV - RRR S1/S2. Tele showing no significant dysrhythmias Abd - Soft, NT/ND, Positive BS Ext - No pedal edema Neuro - Nonfocal exam. Psych - Nml mood and affect Skin - Warm and dry DS: Data Data Completed and Pending Labs on day of discharge: Labs from last 24 hours 01/23/23 01/23/23 01/23/23 11:51 07:56 05:57 WBC 9.1 RBC 4.51 Hgb 12.9 Hct 39.9 MCV 88.5 MCH 28.6 MCHC 32.3 RDW 13.0 Plt Count 275 MPV 10.5 H Immature Gran % (Auto) 0.2 Neut % (Auto) 45.5 Lymph % (Auto) 43.7 [place] % (Auto) 6.7 Eos % (Auto) 3.0 Baso % (Auto) 0.9 Lymph # (Auto) 3.98 H [place] # (Auto) 0.6 Eos # (Auto) 0.3 Baso # (Auto) 0.1 Abs Immat Gran (auto) 0.02 Absolute Neuts (auto) 4.1 Absolute Nucleated RBC 0.0 Nucleated RBC % 0.0 Sodium 138 Potassium 4.0 Chloride 107 Carbon Dioxide 26 Anion Gap 5 L BUN 16 Creatinine 0.90 Estim Creat Clear Calc 31 Estimated GFR 59 Glucose 82 POC Capillary Glucose 82 102 Calcium 8.6 Phosphorus 3.6 Magnesium 1.6 Albumin 3.4 L 01/22/23 01/22/23 20:57 17:13 WBC RBC Hgb Hct MCV MCH MCHC RDW Plt Count MPV Immature Gran % (Auto) Neut % (Auto) Lymph % (Auto) [place] % (Auto) Eos % (Auto) Baso % (Auto) Lymph # (Auto) [place] # (Auto) Eos # (Auto) Baso # (Auto) Abs Immat Gran (auto) Absolute Neuts (auto) Absolute Nucleated RBC Nucleated RBC % Sodium Potassium Chloride Carbon Dioxide
--- NOTE | 2023-01-23 19:36 | PC.NURSE ---
Pt participated and contributed in plan of care. Pt was discharged home. Pt was wheeled down to personal vehicle. Pt denied any pain this shift. Pt did not require any insulin this shift. Pt was monitored for any changes in status.
== END 2023-01-23 16:45 | disposition home or self-care (01) ==
LOC: ANHED 19:14 → ANH3MEDSUR 01-23 10:22
PROVIDERS: Admitting Provider Student in an Organized Health Care Education/Training Program; Emergency Provider Emergency Medicine; PCP Nurse Practitioner Family; Visit Provider Internal Medicine
DX: G93.41 Metabolic encephalopathy (principal); U09.9 Post COVID-19 condition, unspecified; R42 Dizziness and giddiness; R51.9 Headache, unspecified; R63.0 Anorexia; E11.42 Type 2 diabetes mellitus with diabetic polyneuropathy; E78.5 Hyperlipidemia, unspecified; E83.42 Hypomagnesemia; E87.3 Alkalosis; I10 Essential (primary) hypertension; I08.3 Combined rheumatic disorders of mitral, aortic and tricuspid valves; F41.9 Anxiety disorder, unspecified; R94.31 Abnormal electrocardiogram [ECG] [EKG]; K21.9 Gastro-esophageal reflux disease without esophagitis; M81.0 Age-related osteoporosis without current pathological fracture; M51.9 Unspecified thoracic, thoracolumbar and lumbosacral intervertebral disc disorder; Z68.25 Body mass index [BMI] 25.0-25.9, adult; Z99.3 Dependence on wheelchair; Z79.899 Other long term (current) drug therapy
CPT/HCPCS: 36415; 36600; 70450; 70553; 71046; 80053; 80061; 80069; 80307; 81003; 82375; 82805; 82948; 83036; 83050; 83735; 85025; 93005; 93306; 93880; 96361; 96372; 96374; 96375; 97161; 97165; 97535; 99285; A9270; A9577; G0378; J1650; J2060; J3475; J7030

== ENCOUNTER 2023-03-21 11:25 | Outpatient (CLI) | payer OTHER, SELFPAY ==
--- NOTE | ~2023-03-21 | MM_ITS ---
EXAMINATION: MM screening chanda BI w paulino HISTORY: Screening mammogram TECHNIQUE: Craniocaudal and mediolateral oblique 3-D tomosynthesis images were obtained and synthetic 2-D images were generated. CAD analysis was submitted and interpreted. COMPARISON: 12/19/2021, 09/18/2020, 07/04/2019 BREAST PARENCHYMAL COMPOSITION: There are scattered areas of fibroglandular density. FINDINGS: Scattered benign-appearing calcifications are present. No suspicious mass, calcification, o r architectural distortion are identified in either breast to suggest malignancy. There has been no s uspicious interval change. IMPRESSION: 1. No mammographic evidence of malignancy. 2. Recommend routine screening mammography while the patient remains in good health. BI-RADS Category 2: Benign finding(s). Reviewed, dictated and finalized at location A. IMPRESSION: 1. No mammographic evidence of malignancy. 2. Recommend routine screening mammography while the patient remains in good he alth. BI-RADS Category 2: Benign finding(s).
== END 2023-03-21 11:26 | disposition home or self-care (01) ==
LOC: ANHIMG 11:29
PROVIDERS: PCP Nurse Practitioner Family; Visit Provider Nurse Practitioner Family
DX: Z12.31 Encounter for screening mammogram for malignant neoplasm of breast (principal)
CPT/HCPCS: 77063; 77067

== ENCOUNTER 2023-03-25 11:15 | Outpatient (RCR) | payer OTHER, SELFPAY ==
--- NOTE | 2023-03-04 14:00 | PTOPEVAL1 ---
Assessment and note entered by Augusto Porter Evaluation Information Assessment Status Evaluation Diagnosis dizziness and giddiness Onset 01/05/23 Subjective Information Pt. reports that her complication began after developing Covid in December. She reports that she does not notice any spinning, however feels unsteady when walking. She states that as she walks she is reaching out for nearst objects to hold onto. She states that she has used a cane in the past. She reports that she experienced 1 fall a couple weeks ago. She reports she was using the cane when she fell, but her daughter is present and states she does not use the cane properly. She reports that she lives alone, but stop driving recently due to her dizziness. She reports that her goal is to be able to improve her balance. Reported Pain Level Pain Score 0: Self Report Assessment PT Clinical Summary Pt. is an 87 year old female who enters the clinic with a diagnosis of dizziness. She does not present with indication of BPPV on this date. Pt. currently presents with somatosensory deconditioning, impaired gait, impaired l.e. strength and impaired postural awareness. Continued skilled PT is indicated in order to improve these areas to allow the pt.to achieve her goal of improved balance. Plan of Care Interventions Electrical Stimulation,Gait Training,Manual Therapy,Neuro Re-education,Patient/Caregiver Educati,Therapeutic Activities,Therapeutic Exercise PT Services Indicated Yes Treatment Frequency and 2x/week x 10 visits Duration These treatments will address the objective and functional deficits as defined above. The patient will be advanced safely and appropriately in order for the patient to progress towards his/her prior level of function. Additional exercises will be introduced and as well as a comprehensive home exercise program upon discharge, if needed, ?to ensure carryover of functional gains achieved in the clinic. This treatment plan has been reviewed and agreement upon by the patient.
--- NOTE | 2023-03-04 14:01 | OPREHPOC ---
Outpatient Therapy Plan of Care This is a Multidisciplinary Plan of Care that may contain components documented by all disciplines (PT, OT, and ST.) PT Problem 1 PT Problem #1 Knowledge Deficit PT Goal 1 Goal Independent with a HEP addressing strength and mobility. Target Visit 2 PT Problem 2 PT Problem #2 Impaired Balance PT Goal 1 Goal Improve tinetti score to 24 or greater indicating improved balance and safety Target Visit 10 PT Problem 3 PT Problem #3 Impaired Gait PT Goal 1 Goal Pt. will safely ambulate with use of standard cane with correct patterning without cuing for a distance of 500' Target Visit 10 PT Problem 4 PT Problem #4 Impaired Strength PT Goal 1 Goal Pt. will improve l.e. strength to 4+/5 or greater in all mm. groups to improve stability with standing activities. Target Visit 10
--- NOTE | 2023-03-25 12:22 | PTOPDC ---
Assessment and note entered by Dora Rivero DPT Evaluation Information Assessment Status Discharge Diagnosis dizziness and giddiness Onset 01/05/23 Subjective Information Pt reports she is feeling back to normal Reported Pain Level Pain Score 0: Self Report Pain Score 0: Self Report Assessment PT Clinical Summary The patient reports she is feeling back to normal and displays improved walking speed, balance, and LE strength. She will be discharged to [facility] this date. Plan of Care PT Services Indicated No
== END 2023-03-25 13:03 | disposition home or self-care (01) ==
LOC: ANHPT 11:15
PROVIDERS: PCP Nurse Practitioner Family; Visit Provider Nurse Practitioner Family
DX: R42 Dizziness and giddiness (principal)
CPT/HCPCS: 97014; 97110; 97112; 97116; 97161; 97530; G0283

== ENCOUNTER 2023-08-03 18:49 | Emergency (ER) | payer OTHER, SELFPAY ==
--- NOTE | ~2023-08-03 | CT_ITS ---
EXAMINATION: CT abdomen pelvis w con DATE: 08/03/2023 21:43 INDICATION: constipation, abdominal pain TECHNIQUE: Computed tomography (CT) of the abdomen and pelvis was performed with 100 mL Omnipaque-350 intravenous contrast. Automated exposure control and iterative reconstruction technique were employe d. The dose-length product was 481.40 mGy-cm. COMPARISON: None. FINDINGS: Lower thorax: Mild bilateral dependent scar/atelectasis. Coronary artery calcification. Moderate hiat al hernia. Liver: Normal. Biliary/Gallbladder: Cholelithiasis, without inflammatory changes. Mild intrahepatic duct dilation. T he common bile duct is dilated to 11 mm at the terrance hepatis. Pancreas: No mass or duct dilation. Spleen: Normal. Adrenals:No mass. Kidneys: No suspicious mass, obstructing stone, or hydronephrosis. Bilateral subcentimeter hypodensit ies that likely represent cysts. Punctate nonobstructing left upper pole calcification. GI tract: Mild distal esophageal and gastric wall edema. No small or large bowel dilation. Normal guerrero endix. Diverticulosis without diverticulitis. Mesentery/Peritoneum: No ascites, mass, or free air. Retroperitoneum: No mass. Atherosclerotic abdominal aortic and/or arterial calcifications. Pelvis: Normal urinary bladder. Absent uterus. Ovaries not confidently identified. Soft Tissues: Soft tissues and body wall unremarkable. Bones: No acute osseous finding. IMPRESSION: Mild esophagitis/gastritis. Cholelithiasis, without inflammatory changes. Mild intrahepatic biliary duct dilation with dilation of the common bile duct 11 mm. No obstructing s tone or mass detected. Correlate with biliary labs. Consider MRCP Reviewed, dictated and finalized at location K. IMPRESSION: Mild esophagitis/gastritis. Cholelithiasis, without inflammatory changes. Mild intrahepatic biliary duct dilation with dilation of the common bile duct 1 1 mm. No obstructing stone or mass detected. Correlate with biliary labs. Consi shiraz MRCP
[2023-08-03 18:51] VITALS: BP 153/130; PULSE 86; RESP 20; TEMP 36.4; O2SAT 98
[2023-08-03] MEDS: SODIUM CHLORIDE 0.9% IV 1,000 ML 999 ML IV CONT (20:29)
[2023-08-03 20:39] LABS: Basophils Absolute Auto 0.1 K/mm3 (0.0-0.1); Basophils Percent Auto 0.8 % (0.2-1.2); Eosinophils Absolute Auto 0.4 K/mm3 (0-0.3); Eosinophils Percent Auto 3.1 % (0-4.4); Hematocrit 39.1 % (37.0-47.0); Hemoglobin 12.8 g/dL (12.0-15.0); Immature Granulocyte Absolute 0.04 K/mm3 (0.00-0.031); Immature Granulocyte Percent A 0.3 % (0-0.5); Lymphocytes Percent Auto 37.2 % (18.3-44.2); Mean Corpuscular HGB Conc 32.7 g/dl (32-36); Mean Corpuscular Hemoglobin 28.5 pg (26-34); Mean Corpuscular Volume 87.1 fl (80-100); Mean Platelet Volume 10.5 fl (7.4-10.4); Monocytes Absolute Auto 0.8 K/mm3 (0.1-0.6); Monocytes Percent Auto 7.2 % (2.6-8.5); Neutrophils Absolute Auto 5.9 K/mm3 (1.3-6.7); Neutrophils Percent Auto 51.4 % (45.5-73.1); Platelet Count Result 326 k/mm3 (150-375); Red Blood Count 4.49 M/mm3 (4.2-5.4); White Blood Count 11.6 K/mm3 (4.5-10.0)
--- NOTE | 2023-08-03 20:59 | ED.GENADULT ---
HPI - General Adult General Chief complaint: Unspecified Stated complaint: constipation Time Seen by Provider: 08/03/23 19:48 History of Present Illness HPI narrative: 87-year-old female with a history of hyperlipidemia, diabetes presenting with constipation. Patient states that she has a long history of constipation but she is normal able to go every day or so. States that she has been unable to have a bowel movement for the last several days. States that she was passing gas until yesterday. She complains of lower abdominal pain that is worse on the right. Also complains of pain with urination. She has been nauseated but no vomiting. No fevers, chest pain, shortness of breath, cough. Related Data Home Medications Medication Instructions Recorded Confirmed omega-3 fatty acids 1,000 mg 1,000 mg PO DAILY 06/24/19 07/07/23 capsule (Fish Oil Concentrate) cholecalciferol (vitamin D3) 50 50 mcg PO DAILY 12/06/20 07/07/23 mcg (2,000 unit) capsule citalopram 20 mg tablet 20 mg PO DAILY 01/21/23 07/07/23 atorvastatin 40 mg tablet 40 mg PO DAILY 02/05/23 07/07/23 calcium carbonate 600 mg-vitamin 1 tablet PO DAILY 03/24/23 07/07/23 D3 20 mcg (800 unit) chewable tablet (Caltrate 600 plus D) Allergies Allergy/AdvReac Type Severity Reaction Status Date / Time codeine Allergy Unknown Nausea and Verified 08/03/23 18:56 Vomiting Review of Systems Review of Systems: All systems reviewed & are unremarkable except as noted in HPI and below PMFSH Past Medical History Medical History DDD (degenerative disc disease) Diabetes mellitus Diverticulosis Fibroids GERD (gastroesophageal reflux disease) Hemorrhoids Hiatal hernia HLD (hyperlipidemia) HTN (hypertension) Osteoporosis Peripheral neuropathy Rectal polyp Vertigo Surgical History Surgical History H/O dilation and curettage H/O: hysterectomy Hx of tonsillectomy Status post eye surgery Family History Family History Mother Carcinoma of colon Family history of malignant neoplasm Patient's mother is Sibling Family history of Alzheimer's disease Family history of diabetes mellitus in first degree relative Patient's sister is Father Patient's father is Other Diabetes mellitus Social History Social History Smoking status: Never smoker Second hand tobacco smoke exposure: No Alcohol intake: never Substance use: never Substance use type: does not use Lack of Transportation: No Lack of Food: Never True Current Housing: I Have Housing Concerned About Future Housing: No Difficulty Paying Gas/Electric Bills: No Difficulty Paying for Meds: No Currently Unemployed: No Education: High School Diploma/GED Difficulty w/ Childcare or Family Care: No Spiritual care concerns: Yes (Rastafari) Exam Narrative: GENERAL: Nontoxic, no acute distress, pleasant cooperative HEAD: Normocephalic, atraumatic. EYES: PERRLA and EOMI. ENT: Grossly unremarkable NECK: Supple. CHEST: Clear to auscultation. No respiratory distress. HEART: Regular rate and rhythm. ABDOMEN: Soft, + right lower quadrant and suprapubic tenderness without guarding or rebound EXTREMITIES: Normal range of motion. SKIN: Warm, dry, no rash. NEURO: Alert and oriented x3. PSYCH: Normal mood and affect. Course Vital Signs Vital signs: Vital Signs Temperature 97.6 F 08/03/23 18:51 Pulse Rate 86 08/03/23 18:51 Respiratory Rate 20 08/03/23 18:51 Blood Pressure 153/130 H 08/03/23 18:51 Pulse Oximetry 98 08/03/23 18:51 Oxygen Delivery Room Air 08/03/23 18:51 Temperature 97.6 F 08/03/23 22:09 Pulse Rate 77 08/03/23 22:09 Respir
[2023-08-03 21:00] LABS: Lactic Acid Reflex 2.4 mmol/L (0.7-2.0)
[2023-08-03 21:01] LABS: Alanine Aminotransferase 22 U/L (6-35); Albumin Level 4.1 g/dL (3.5-5.1); Alkaline Phosphatase 82 U/L (38-126); Anion Gap 8 mmol/L (8-16); Aspartate Amino Transferase 29 U/L (14-36); Bilirubin,Total 0.7 mg/dL (0.2-1.3); Blood Urea Nitrogen 15 mg/dL (7-17); Calcium 9.9 mg/dL (8.4-10.2); Carbon Dioxide 22 mmol/L (22-30); Chloride 109 mmol/L (98-107); Estimated CRCL calculation 34 ml/min; Estimated Glomerular Filt Rate > 60; Glucose 107 mg/dL (65-110); Lipase 168 U/L (23-300); Potassium 3.2 mmol/L (3.4-5.0); Sodium 139 mmol/L (137-145)
[2023-08-03 21:34] LABS: Appearance Urine Clear (Clear); Bilirubin Urine Negative (Negative); Blood Urine Negative (Negative); Color Urine Yellow (Yellow); Glucose Urine UA Negative (Negative); Ketones Urine Negative (Negative); Leukocyte Esterase Ur Negative LEU/UL (Negative); Nitrate Urine Negative (Negative); Protein Urine Negative (Negative); Specific Grav Ur 1.007 (1.001-1.035); Urobilinogen Urine 0.2 mg/dL (<2.0); pH Urine 8.5 (5.0-9.0)
[2023-08-03 21:38] LABS: Add Urine Microscopic? NO
[2023-08-03] MEDS: KETOROLAC 15 MG/ML VIAL (*BKC) IV PUSH (22:06)
[2023-08-03 22:09] VITALS: BP 112/60; PULSE 77; RESP 15; TEMP 36.4; O2SAT 99
[2023-08-03 23:36] LABS: Reflex Lactic Acid Yes or No Add Lactic
== END 2023-08-03 23:30 | disposition home or self-care (01) ==
PROVIDERS: Emergency Provider Emergency Medicine; PCP Nurse Practitioner Family
DX: K59.00 Constipation, unspecified (principal); R10.30 Lower abdominal pain, unspecified; E78.5 Hyperlipidemia, unspecified; E11.42 Type 2 diabetes mellitus with diabetic polyneuropathy; I10 Essential (primary) hypertension; K21.9 Gastro-esophageal reflux disease without esophagitis; M81.0 Age-related osteoporosis without current pathological fracture; Z87.19 Personal history of other diseases of the digestive system; Z90.710 Acquired absence of both cervix and uterus; K80.20 Calculus of gallbladder without cholecystitis without obstruction; K20.90 Esophagitis, unspecified without bleeding; K29.70 Gastritis, unspecified, without bleeding; R93.2 Abnormal findings on diagnostic imaging of liver and biliary tract; Z79.82 Long term (current) use of aspirin; Z79.84 Long term (current) use of oral hypoglycemic drugs
CPT/HCPCS: 36415; 74177; 80053; 81003; 83605; 83690; 85025; 96361; 96374; 99284; J1885; J7030; Q9967

== ENCOUNTER 2023-12-27 11:39 | Emergency (ER) | payer OTHER, SELFPAY ==
[2023-12-27] VITALS (7 sets, daily range): BP systolic 102–121; BP diastolic 64–84; PULSE 70–90; RESP 18–20; TEMP 36.4–36.5; O2SAT 98–100
--- NOTE | 2023-12-27 11:45 | ECG_ITS ---
Test Date: 2023-12-27 11:54:16 Measurements Intervals [place] Rate: 82 P: 0 AK: 0 QRS: 16 QRSD: 79 T: 85 QT: 314 QTc: 369 Interpretive Statements POOR QUALITY ECG WITH SIGNIFICANT BASELINE ARTIFACT REGULAR RHYTHM SUSPECT SINUS RHYTHM NONSPECIFIC T-WAVE ABNORMALITY ABNORMAL ECG, POOR QUALITY ECG No previous ECG available for comparison Electronically Signed On 12-28-2023 14:50:39 CDT by Augusto Gomez M.D.
--- NOTE | 2023-12-27 12:58 | ED.NAVMDI ---
HPI - Nausea/Vomiting/Diarrhea General Chief complaint: Nausea/Vomiting/Diarrhea Stated complaint: N/V Time Seen by Provider: 12/27/23 12:10 History of Present Illness HPI Narrative: Patient is an 88-year-old female presenting with vomiting. States that she woke up and had much of an appetite but was able to eat some granola. She then went to faith and in the middle of a meeting she suddenly started vomiting. States that it looked yellow and green. States that she felt lightheaded as well. Denies any pain. No chest pain or abdominal pain. No shortness of breath. No dysuria or hematuria. Patient's family is at bedside and states that she does not drink enough water and she often has UTIs. Currently, the patient denies complaints. Related Data Home Medications Medication Instructions Recorded Confirmed omega-3 fatty acids 1,000 mg 1,000 mg PO DAILY 06/24/19 11/23/23 capsule (Fish Oil Concentrate) cholecalciferol (vitamin D3) 50 50 mcg PO DAILY 12/06/20 11/23/23 mcg (2,000 unit) capsule citalopram 20 mg tablet 20 mg PO DAILY 01/21/23 11/23/23 calcium carbonate 600 mg-vitamin 1 tablet PO DAILY 03/24/23 11/23/23 D3 20 mcg (800 unit) chewable tablet (Caltrate 600 plus D) Allergies Allergy/AdvReac Type Severity Reaction Status Date / Time codeine Allergy Unknown Nausea and Verified 11/23/23 10:50 Vomiting Review of Systems Review of Systems: All systems reviewed & are unremarkable except as noted in HPI and below PMFSH Past Medical History Medical History DDD (degenerative disc disease) Diabetes mellitus Diverticulosis Fibroids GERD (gastroesophageal reflux disease) Hemorrhoids Hiatal hernia HLD (hyperlipidemia) HTN (hypertension) Osteoporosis Peripheral neuropathy Rectal polyp Vertigo Surgical History Surgical History H/O dilation and curettage H/O: hysterectomy Hx of tonsillectomy Status post eye surgery Family History Family History Mother Carcinoma of colon Family history of malignant neoplasm Patient's mother is Sibling Family history of Alzheimer's disease Family history of diabetes mellitus in first degree relative Patient's sister is Father Patient's father is Other Diabetes mellitus Social History Social History Smoking status: Never smoker Second hand tobacco smoke exposure: No Alcohol intake: never Substance use: never Substance use type: does not use Lack of Transportation: No Lack of Food: Never True Current Housing: I Have Housing Concerned About Future Housing: No Difficulty Paying Gas/Electric Bills: No Difficulty Paying for Meds: No Currently Unemployed: No Education: High School Diploma/GED Difficulty w/ Childcare or Family Care: No Spiritual care concerns: Yes ([employer]) Exam Narrative: GENERAL: Well-appearing, in no acute distress, pleasant cooperative HEAD: Normocephalic, atraumatic. EYES: PERRLA and EOMI. ENT: Grossly unremarkable NECK: Supple. CHEST: Clear to auscultation. No respiratory distress. HEART: Regular rate and rhythm ABDOMEN: Soft, nontender, nondistended EXTREMITIES: Normal range of motion. No edema. SKIN: Warm, dry, no rash. NEURO: No focal deficits. Alert and oriented x3. PSYCH: Normal mood and affect. Course Vital Signs Vital signs: Vital Signs Temperature 97.7 F 12/27/23 11:44 Pulse Rate 74 12/27/23 11:44 Respiratory Rate 20 12/27/23 11:44 Blood Pressure 102/84 12/27/23 11:44 Pulse Oximetry 100 12/27/23 11:44 Oxygen Delivery Room Air 12/27/23 11:44 Temperature 97.6 F 12/27/23 15:46 Pulse Rate 70 12/27/23 15:46 Respiratory Rate 18 12/27/23 15
[2023-12-27 13:53] LABS: Basophils Absolute Auto 0.1 K/mm3 (0.0-0.1); Basophils Percent Auto 0.7 % (0.2-1.2); Eosinophils Absolute Auto 0.7 K/mm3 (0-0.3); Eosinophils Percent Auto 4.8 % (0-4.4); Hematocrit 42.4 % (37.0-47.0); Hemoglobin 13.9 g/dL (12.0-15.0); Immature Granulocyte Absolute 0.04 K/mm3 (0.00-0.031); Immature Granulocyte Percent A 0.3 % (0-0.5); Lymphocytes Absolute Auto 3.79 K/mm3 (0.9-3.2); Lymphocytes Percent Auto 25.4 % (18.3-44.2); Mean Corpuscular HGB Conc 32.8 g/dl (32-36); Mean Corpuscular Hemoglobin 28.8 pg (26-34); Mean Corpuscular Volume 87.8 fl (80-100); Mean Platelet Volume 10.2 fl (7.4-10.4); Monocytes Absolute Auto 0.9 K/mm3 (0.1-0.6); Monocytes Percent Auto 5.9 % (2.6-8.5); Neutrophils Absolute Auto 9.4 K/mm3 (1.3-6.7); Neutrophils Percent Auto 62.9 % (45.5-73.1); Platelet Count Result 292 k/mm3 (150-375); Red Blood Count 4.83 M/mm3 (4.2-5.4); Red Cell Distribution Width 13.2 % (11.5-14.5); White Blood Count 14.9 K/mm3 (4.5-10.0)
[2023-12-27 14:03] LABS: Alanine Aminotransferase 19 U/L (6-35); Albumin Level 4.3 g/dL (3.5-5.1); Alkaline Phosphatase 80 U/L (38-126); Anion Gap 12 mmol/L (4-12); Aspartate Amino Transferase 27 U/L (14-36); Bilirubin,Total 0.6 mg/dL (0.2-1.3); Blood Urea Nitrogen 18 mg/dL (7-17); Calcium 9.7 mg/dL (8.4-10.2); Carbon Dioxide 24 mmol/L (22-30); Chloride 103 mmol/L (98-107); Estimated CRCL calculation 33 ml/min; Estimated Glomerular Filt Rate > 60; Glucose 89 mg/dL (65-110); Lipase 189 U/L (23-300); Potassium 3.8 mmol/L (3.4-5.0); Sodium 139 mmol/L (137-145)
[2023-12-27] MEDS: SODIUM CHLORIDE 0.9% IV 1,000 ML 999 ML IV CONT ×2 (14:07→14:35)
[2023-12-27 14:08] LABS: Add Urine Microscopic? YES; Appearance Urine Cloudy (Clear); Bacteria Urine None Seen /hpf; Bilirubin Urine Negative (Negative); Blood Urine Negative (Negative); Color Urine Yellow (Yellow); Glucose Urine UA Negative (Negative); Ketones Urine Trace mg/dL (Negative); Leukocyte Esterase Ur 2+ LEU/UL (Negative); Need Manual Microscopic Reviewed; Nitrate Urine Negative (Negative); Protein Urine Trace mg/dL (Negative); RBC Urine 0-2 /hpf (0-2); Specific Grav Ur 1.022 (1.001-1.035); Squamous Epithelial Cell Urine Moderate /hpf (Few); pH Urine 7.5 (5.0-9.0)
[2023-12-27] MEDS: CEPHALEXIN 500 MG CAPSULE PO (14:36)
[2023-12-28 11:09] LABS: Glucose Point of Care 78 mg/dl (65-105)
== END 2023-12-27 16:46 | disposition home or self-care (01) ==
PROVIDERS: Emergency Provider Emergency Medicine; PCP Nurse Practitioner Family
DX: E86.0 Dehydration (principal); N39.0 Urinary tract infection, site not specified; E78.5 Hyperlipidemia, unspecified; I10 Essential (primary) hypertension; E11.9 Type 2 diabetes mellitus without complications
CPT/HCPCS: 36415; 80053; 81001; 82948; 83690; 85025; 87086; 87088; 93005; 96360; 99283; A9270; J7030

== ENCOUNTER 2024-12-03 12:45 | Outpatient (CLI) | payer OTHER, SELFPAY ==
--- NOTE | ~2024-12-03 | MR_ITS ---
MRI of the brain Clinical History: Tremor Technique: Axial and sagittal T1-weighted images were acquired. These were followed by axial T2-weigh jimmie, diffusion weighted, gradient, and FLAIR images. Following intravenous administration of 12 cc Mu ltiHance gadolinium, T1-weighted fat-sat imaging was performed in the axial and coronal planes. COMPARISON: 01/22/2023 Findings: There is no acute infarct, intracranial hemorrhage, or mass lesion. There is severe chronic microvascular ischemic change in the periventricular white matter bilaterally. Ventricles and subarachnoid spaces are dilated. Orbits are unremarkable. Paranasal sinuses and mastoi d vessels are clear. Major intracranial flow voids are intact. Sagittal midline structures are intact. No abnormal postcontrast enhancement identified. IMPRESSION: No acute infarct, intracranial hemorrhage, or mass lesion. Severe chronic microvascular ischemic change and moderate generalized atrophy, similar to prior exam. Reviewed, dictated and finalized at [facility].
--- OUTSIDE RECORDS SUMMARY | 2024-12-03 12:49 | XMS_ITS | Referral Summary ---
Author Organization [facility] Address [address] [place] [address] Care Team Providers Care Hydraulic Modeling Engineer Name Role Phone Thien Venegas MD Unavailable [phone] Rebecca Mcallister NP Primary Care Provider [phone] Allergies Active Allergy Reactions Criticality Noted Date Comments Codeine Nausea & Vomiting Low 05/03/2019 Medications atorvastatin (LIPITOR) 20 mg tablet Take 1 tablet (20 mg total) by mouth nightly 30 tablet 9 Active Additional Information Patient taking differently:20 mg oral Nightly,Indications: hyperlipidemia, Informant: Self, Reported on 10/27/2023 omeprazole (PriLOSEC) 40 mg capsuleIndicati ons:acid reflux Take 1 capsule (40 mg total) by mouth every morning Active metFORMIN (GLUCOPHAGE) 500 mg tabletIndicatio ns:type 2 diabetes mellitus Take 1 tablet (500 mg total) by mouth 2 (two) times a day with meals Active citalopram (CeleXA) 20 mg tablet Take 1 tablet (20 mg total) by mouth daily 4 Active aspirin 81 mg enteric coated tablet Take 1 tablet (81 mg total) by mouth daily Active cholecalciferol (VITAMIN D-3) 2000 unit tablet Active omega-3 fatty acids-fish oil 300-1,000 mg capsule Take 2 capsules (2 g total) by mouth daily Active gabapentin (NEURONTIN) 400 mg capsule Take 1 capsule (400 mg total) by mouth daily 4 Active Active Problems Problem Noted Date Diagnosed Date Tremor 11/13/2023 Assessment & Plan (11/13/2023 10:58 AM CDT): Ms. Noemi Peter is a 87 y.o. female, who presents for evaluation of tremor and gait changes. She developed involuntary body movements and unsteady gait in 2022. They started two weeks after having had COVID and were associated at the time with cognitive changes, being confused, with changes in speech. She had a negative work-up and in May 2023, she was better, with less of the involuntary movements, just with some mild truncal sway. She thought she was in the path for recovery, when she was infected by COVID a second time in June, and this triggered recrudescence of her symptoms. Since then, she has had good and bad days, and the symptoms are provoked by physical exertion. She has about one bad day a week and despite her symptoms, continues to live alone and can do her house chores. She has done physical therapy. Other than taking antiviral for COVID in June, she has not been on any new drug. There is no family history of similar symptoms . On examination, there is intermittent, distractible semi-rhythmic movements affecting the head, trunk and limbs that change in direction. She became very tired with the examination, which prompted the movements and required interruptions. She was able to stand and walk by holding the examiner with both hands. The gait was hesitant, wide based and she was unable to stand without support. History and examination are compatible with tremor and gait disorder. As far as the tremor, there were elements suspicious for functional tremor based on the examination. Other supportive features include sudden onset of tremor, clear improvement without obvious treatment. The gait was surprisingly limited for a person that despite the symptoms can still live independently. There were no functional features in the gait per se, she was hesitant and had a wide based gait and has to hold the examiner without being able to stand unsupported. However, there were no other features in the exam that could support the findings in the gait, such as changes in EOM, ataxia in the limbs or weakness. We had a long discussion about her symptoms and the features in the history and exam that could link them to functional neurological disorder. We talked there was an increase in neurological symptoms with those features post-COVID infection and it is unclear the association of the viral infection with the symptoms. We will send her case for review with the COVID clinic and see if she qualifies for an evaluation. We will also obtain records from assessment in 2022. In the meantime, she should continue to work with physical therapy as it has been helpful. Plan: Referral to COVID clinic. Continue physical therapy. Potential medication side effects were discussed during the encounter. Gait disorder 11/13/2023 Closed fracture of orbit 06/02/2019 Overview (06/02/2019): Added automatically from request for surgery [id number] HTN (hypertension) 05/04/2019 HLD (hyperlipidemia) 05/04/2019 Neuropathy 05/04/2019 Anxiety 05/04/2019 Type 2 diabetes mellitus, wi thout long-term current use of insulin 05/04/2019 Acute pain due to trauma 05/04/2019 Syncope and collapse 05/04/2019 Fracture of orbital floor, l eft side, initial encounter for closed fracture 05/04/2019 Closed fracture of left orbital floor Diplopia Fall Immunizations Immunization Administration Dates Next Due Tdap 05/03/2019 Social History Tobacco Use Types Packs/Day Years Used Date Smoking Tobacco: Never Smokeless Tobacco: Never Tobacco Cessation:Counseling Given: Not Answered Alcohol Use Standard Drinks/Week Comments Never 0 (1 standard drink = 0.6 oz pur e alcohol) AUDIT-C Answer Date Recorded Frequency of Alcohol Consumption Never 06/02/2019 Average Number of Drinks Not on file 020 Frequency of Binge Drinking Not on file 01/2020 Comments No Sex and Gender Information Value Date Recorded Sex Assigned at Not on file Legal Sex Female 7:53 AM CDT Gender Identity Not on file Sexual Orientation Not on file Last Filed Vital Signs Vital Sign Reading Time Taken Comments Blood Pressure 129/71 03/31/2024 2:28 PM MEAT BONER Pulse 80 03/31/2024 2:28 PM MEAT BONER Temperature 36.8 C (98.2 F) 03/31/2024 2:28 PM MEAT BONER Respiratory Rate 20 03/31/2024 2:28 PM MEAT BONER Oxygen Saturation 99% 03/31/2024 2:28 PM MEAT BONER Inhaled Oxygen Concentration - - Weight 61.2 kg (135 lb) 03/31/2024 2:28 PM MEAT BONER Height 157.5 cm (5' 2.01) 03/31/2024 2:28 PM CS T Body Mass Index 24.69 03/31/2024 2:28 PM MEAT BONER Plan of Treatment Not on file Medical Devices Implanted Type Area Polysomnographic Technologist Device Identifier Shelf Expiration Date Model / Serial / Lot Biomet Micro[employer] 447 Traumaone Mendez .3mm Grade Iv Preforme Orbital Floor Midface - [id number] Implanted:Qty: 1 on 06/14/2019 by Francisco Person MD at [facility] Plate Left: Orbit [employer] / / [employer] -[id number] Traumaone Mendez 1.5mm 3.5mm Self Drill High [address] - [id number] Implanted:Qty: 2 on 06/14/2019 by Francisco Person MD at [facility] Screw Left: Orbit [employer] -[id number] / / Description:2 screws Insurance [facility] Advance Directives For more information, please contact: [phone] Documents on File Type Date Recorded Patient Service Center Coordinator Expl anation ADVANCE DIRECTIVE 05/09/2019 5:13 AM SMITH R OF TIME STUDY CLERK-MEDICAL * Full Code (Latest Code Status on File) Date Activated Date Inactivated Comments 06/14/2019 5:02 PM 06/15/2019 2:52 PM * Full Code Date Activated Date Inactivated Comments 05/04/2019 2:32 AM 05/04/2019 10:02 PM Care Teams Hydraulic Modeling Engineer Relationship Specialty Start Date End Date Rebecca Mcallister NP [address] [place] [address] PCP - General Nurse Practitioner 11/27/23 Thien Venegas MD Consulting Physician Otolaryngology 05/04/19
--- OUTSIDE RECORDS SUMMARY | 2024-12-03 12:49 | XMS_ITS | Clinical Summary ---
Author Organization [facility] Address [address], [address] [address] Phone Care Team Providers Care Shell Plater Name Role Phone Chidi Oliver MD Primary Care Provider [phone] Suhas Arun Leonides DO Unavailable [phone] Allergies Active Allergy Reactions Criticality Noted Date Comments Codeine Unknown 08/14/2015 Medications metFORMIN (GLUCOPHAGE) 500 MG Tablet Take 500 mg by mouth 2 times daily (with meals). Active gabapentin (NEURONTIN) 400 MG Capsule Take 400 mg by mouth daily. Active atorvastatin (LIPITOR) 40 MG Tablet Take 40 mg by mouth daily. Active Lisinopril 30 MG Tablet Take 30 mg by mouth daily. Active citalopram (CELEXA) 20 MG Tablet Take 20 mg by mouth daily. Active Flaxseed, Linseed, (FLAXSEED OIL) 1000 MG Capsule Take by mouth 2 times daily. Active omeprazole (PRILOSEC) 40 MG CAPSULE DELAYED RELEASE Take 1 Cap by mouth every morning. 90 Cap 3 04/01/2016 Active Immunizations Immunization Administration Dates Next Due Covid-19, Mrna, Lnp-s, Pf, 30 Mcg/0.3 Ml Dose (P fizer) 08/10/2020,07/20/2020 Social History Tobacco Use Types Packs/Day Years Used Date Smoking Tobacco: Never Assessed Comments Unknown Sex and Gender Information Value Date Recorded Sex Assigned at Not on file Legal Sex Female 9:11 PM CDT Gender Identity Not on file Sexual Orientation Not on file Plan of Treatment Health Maintenance Due Date Last Done Comments DEXA Bone Density 1935 Hepatitis C Virus (HCV) Screening 1935 TdaP Immunization 1935 Zoster Immunization (1 of 2) 11/23/1985 Respiratory Syncytial Virus (RSV) Immunization (Adult) (1 - 1-dose 75+ series) 11/23/2010 Pneumococcal Immunization (50+ years) (2 of 2 - PCV) 06/15/2019 06/15/2018, 06/04/2017 Influenza Immunization (#1) 01/24/202401/24, 03/10/2018, 02/11/2017, Additional history exists SARS-COV-2 Immunization ( season) 2024 04/08/2021, 08/10/2020, 07/20/2020 Pneumococcal Immunization Combined Discontinued 06/15/2018, 06/04/2017 Hepatitis B Immunization Aged Out No longer eligible based on patient's age to complete this topic Meningococcal Immunization (ACWY) Aged Out No longer eligible based on patient's age to complete this topic Rotavirus Immunization Aged Out No lo nger eligible based on patient's age to complete this topic Insurance MEDICARE C [employer] Care Teams Shell Plater Relationship Specialty Start Date End Date Chidi Oliver MD [address] [place] [address] PCP - General Internal Medicine 08/13/15 Arun Dai DO [address] [facility] [address] [place] [address] Gastroenterology 08/13/15
--- OUTSIDE RECORDS SUMMARY | 2024-12-03 12:49 | XMS_ITS | Clinical Summary ---
Author Organization [facility] Address [address] [place] [address] Care Team Providers Care Spa Therapist Name Role Phone Thien Venegas MD Unavailable [phone] Rebecca Mcallister NP Primary Care Provider [phone] Allergies Active Allergy Reactions Criticality Noted Date [...] (06/02/2019): Added automatically from request for surgery [id number] HTN (hypertension) 05/04/2019 HLD (hyperlipidemia) 05/04/2019 Neuropathy 05/04/2019 Anxiety 05/04/2019 Type 2 diabetes mellitus, wi thout long-term current use of insulin 05/04/2019 Acute pain due to trauma 05/04/2019 Syncope and collapse 05/04/2019 Fracture of orbital floor, l eft side, initial encounter for closed fracture 05/04/2019 Closed fracture of left orbital floor Diplopia Fall Immunizations Immunization Administration Dates Next Due Tdap 05/03/2019 Surgical History Surgery Date Site/Laterality Comments HYSTERECTOMY 05/25/2005 - 05/24/2006 TONSILLECTOMY 05/25/1939 - 05/24/1940 COLONOSCOPY 05/25/2014 - 05/24/2015 multiple ORBITAL FRACTURE SURGERY Medical History Medical History Date Comments Diabetes mellitus (HCC) Family History Medical History Relation Name Comments Cancer Brother Atrial fibrillation Daughter 1 No Known Problems Daughter 2 Cancer Mother Cancer Sister Anesthesia problems Neg Hx Relation Name Status Comments Brother Daughter 1 Alive Daughter 2 Alive Mother Sister Son Alive Social History Tobacco Use Types Packs/Day Years [...] on file Sexual Orientation Not on file Obstetrics History Last Filed Vital Signs Vital Sign Reading Time Taken Comments Blood Pressure 129/71 03/31/2024 2:28 PM HIDE BUYER Pulse 80 03/31/2024 2:28 PM HIDE BUYER Temperature 36.8 C (98.2 F) 03/31/2024 2:28 PM HIDE BUYER Respiratory Rate 20 03/31/2024 2:28 PM HIDE BUYER Oxygen Saturation 99% 03/31/2024 2:28 PM HIDE BUYER Inhaled Oxygen Concentration - - Weight 61.2 kg (135 lb) 03/31/2024 2:28 PM HIDE BUYER Height 157.5 cm (5' 2.01) 03/31/2024 2:28 PM CS T Body Mass Index 24.69 03/31/2024 2:28 PM HIDE BUYER Plan of Treatment Health Maintenance Due Date Last Done Comments Albumin Creatinine Ratio, Urine 1935 Fall Risk Assessment 1935 Hemoglobin A1C 1935 Osteoporosis Screening-Bone Density Scan 1935 eGFR 1935 Foot Exam 1935 Lipid Panel 1935 Hepatitis B Screening 11/23/1953 Zoster Vaccine (1 of 2) 11/23/1985 Well Visit 65+ 11/23/2000 Pneumococcal vaccine 65+ (2 of 2 - PCV) 06/15/2019 06/15/2018, 06/04/2017 Dilated Eye Exam 06/01/2020 06/01/2019 Covid-19 Vaccine (3 - 2023-2 5 season) 2024 08/10/2020, 07/20/2020 Depression Screening 10/26/2024 10/27/2023 Influenza Vaccine (#1) 2025 8, 02/11/2017, 03/18/2016, Additional history exists DTaP/Tdap/Td Vaccine (2 - Td or Tdap) 05/03/2029 05/03/2019 Medical Devices Implanted Type Area Unclaimed Property Manager Device Identifier Shelf Expiration Date Model / Serial / Lot BiomExpertBids.comix[employer] Inc -[id number] Traumaone Mendez .3mm Grade Iv Preforme Orbital Floor Midface - [id number] Implanted:Qty: 1 on 06/14/2019 by Francisco Person MD at [facility] Plate Left: Orbit [employer] -[id number] / / [employer] [id number] Traumaone Mendez 1.5mm 3.5mm Self Drill High [address] - [id number] Implanted:Qty: 2 on 06/14/2019 by Francisco Person MD at [facility] Screw Left: Orbit [employer] [id number] / / Description:2 screws Insurance [facility] Advance Directives For more information, please contact: [phone] Documents on File Type Date Recorded Patient Head Bellhop Captain Expl anation ADVANCE DIRECTIVE 05/09/2019 5:13 AM SMITH R OF CORRESPONDENCE SPECIALIST-MEDICAL * Full Code (Latest Code Status on File) Date Activated Date Inactivated Comments 06/14/2019 5:02 PM 06/15/2019 2:52 PM * Full Code Date Activated Date Inactivated Comments 05/04/2019 2:32 AM 05/04/2019 10:02 PM Care Teams Spa Therapist Relationship Specialty Start Date End Date Rebecca Mcallister NP [address] [facility] [address] [address] PCP - General Nurse Practitioner 11/27/23 Thien Venegas MD Consulting Physician Otolaryngology 05/04/19
== END 2024-12-03 12:46 | disposition home or self-care (01) ==
PROVIDERS: PCP Emergency Medicine; Visit Provider Emergency Medicine
DX: I67.82 Cerebral ischemia (principal); G31.9 Degenerative disease of nervous system, unspecified; R26.81 Unsteadiness on feet
CPT/HCPCS: 70553; A9577

== ENCOUNTER 2025-01-24 10:11 | Outpatient (CLI) | payer OTHER, SELFPAY ==
--- OUTSIDE RECORDS SUMMARY | 2025-01-24 10:40 | XMS_ITS | Clinical Summary ---
Author Organization [facility] Address [address], [address] [address] Phone Care Team Providers Care Behavior Therapist Name Role Phone Chidi Oliver MD Primary Care Provider [phone] Suhas Arun Leonides DO Unavailable [phone] Allergies Active Allergy Reactions Criticality Noted [...] Health Maintenance Due Date Last Done Comments Hepatitis C Virus (HCV) Screening 1935 TdaP Immunization 1935 Zoster Immunization (1 of 2) 11/23/1985 Respiratory Syncytial Virus (RSV) Immunization (Adult) (1 - 1-dose 75+ series) 11/23/2010 Pneumococcal Immunization (50+ years) (2 of 2 - PCV) 06/15/2019 06/15/2018, 06/04/2017 SARS-COV-2 Immunization (4 - season) 2024 04/08/2021, 08/10/2020, 07/20/2020 Influenza Immunization (#1) 01/23/202501/24, 03/10/2018, 02/11/2017, Additional history exists Pneumococcal Immunization Combined Discontinued 06/15/2018, 06/04/2017 Hepatitis B Immunization Aged Out No longer eligible based on patient's age to complete this topic Human Papillomavirus (HPV) Immunization Aged Out No longer eligible based on patient's age to complete this topic Meningococcal Immunization (ACWY) Aged Out No longer eligible based on patient's age to complete this topic Rotavirus Immunization Aged Out No lo nger eligible based on patient's age to complete this topic Insurance MEDICARE C [employer] Care Teams Behavior Therapist Relationship Specialty Start Date End Date Chidi Oliver MD [address] [place] [address] PCP - General Internal Medicine 08/13/15 Arun Dai DO [address] [place] [address] Gastroenterology 08/13/15
--- OUTSIDE RECORDS SUMMARY | 2025-01-24 10:40 | XMS_ITS | Clinical Summary ---
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 Name Role Phone Thien Venegas MD Unavailable [phone] Rebecca Mcallister NP Primary Care Provider Allergies Active Allergy Reactions Criticality Noted Date [...] (06/02/2019): Added automatically from request for surgery [id number] HTN (hypertension) 05/04/2019 HLD (hyperlipidemia) 05/04/2019 Neuropathy [...] Comments Blood Pressure 129/71 03/31/2024 2:28 PM [employer] Pulse 80 03/31/2024 2:28 PM [employer] Temperature 36.8 C (98.2 F) 03/31/2024 2:28 PM [employer] Respiratory Rate 20 03/31/2024 2:28 PM [employer] Oxygen Saturation 99% 03/31/2024 2:28 PM [employer] Inhaled Oxygen Concentration - - Weight 61.2 kg (135 lb) 03/31/2024 2:28 PM [employer] Height 157.5 cm (5' 2.01) 03/31/2024 2:28 PM CS T Body Mass Index 24.69 03/31/2024 2:28 PM [employer] Plan of Treatment Health Maintenance Due Date [...] 05/03/2029 05/03/2019 Medical Devices Implanted Type Area Maintenance Groundskeeper Device Identifier Shelf Expiration Date Model / Serial / Lot [id number] -[id number] Traumaone Mendez .3mm Grade Iv Preforme Orbital Floor Midface - [id number] Implanted:Qty: 1 on 06/14/2019 by Francisco Person MD at [facility] Plate Left: Orbit [employer] -[id number] / / [employer] [id number] Traumaone Mendez 1.5mm 3.5mm Self Drill [address] - [id number] Implanted:Qty: 2 on 06/14/2019 by Francisco Person MD at 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
[2025-01-24 12:03] LABS: Vitamin B12 308.0 pg/mL (239-931)
== END 2025-01-24 10:12 | disposition home or self-care (01) ==
LOC: ANHLAB 10:11
PROVIDERS: PCP Emergency Medicine; Visit Provider Psychiatry & Neurology Neurology
DX: R25.1 Tremor, unspecified (principal); E11.40 Type 2 diabetes mellitus with diabetic neuropathy, unspecified
CPT/HCPCS: 36415; 82390; 82607; 82746; 83090